=== PATIENT | female | born 1990 | race Caucasian/White ===

== ENCOUNTER → 2018-02-19 12:45 | Outpatient (CLI) | payer OTHER, SELFPAY ==
[2018-02-19 13:28] LABS: Absolute Neutrophil Count 8.5 X10^3/uL (2.0-7.7); Basophil# 0.02 X10^3/uL; Basophil% 0.2 % (0-1); Eosinophil# 0.07 X10^3/uL; Eosinophils% 0.7 % (0-5); Hematocrit 36.3 % (37-47); Hemoglobin 12.8 g/dl (12.0-15.0); Lymphocyte % 14.3 % (19-41); Mean Corp Hgb Conc 35.3 g/gl (32-36); Mean Corpuscular Hgb 31.6 pg (27.0-32.0); Mean Corpuscular Volume 89.6 fL (81-99); Mean Platelet Vol. 10.1 fl (6.2-12.0); Monocyte# 0.43 X10^3/uL; Monocyte% 4.1 % (0-10); Neutrophil # 8.48 X10^3/uL (2.7-7.7); Neutrophil % 80.5 % (47-70); Platelet Count 225 K/mm3 (150-450); RBC Distribution Width CV 12.2 % (11.6-14.6); RBC Distribution Width SD 39.4 fl (35.1-43.9); Red Blood Count 4.05 M/mm3 (4.2-5.4); White Blood Count 10.5 K/mm3 (4.4-11.0)
[2018-02-19 13:34] LABS: POSITIVE COUNT NO; POSITIVE DIFFERENTIAL NO
[2018-02-19 13:35] LABS: POSITIVE MORPHOLOGY NO
[2018-02-19 14:39] LABS: HIV - WCH Non-Reactive (Nonreactive)
[2018-02-19 14:53] LABS: Chlamydia Trachomatis by PCR Negative (Negative); Neisserai gonorrhoeae by PCR Negative (Negative); Probe Check PASS; Sample Adequacy Control PASS; Specimen Processing Control PASS
[2018-02-20 10:27] LABS: HEPATITIS B SURFACE AG Negative (Negative)
[2018-02-21 05:27] LABS: Rapid Plasmin Reagin (RPR) NONREACTIVE (NONREACTIVE)
== END ==
PROVIDERS: Referring Provider Obstetrics & Gynecology; Visit Provider Obstetrics & Gynecology
DX: Z34.00 Encounter for supervision of normal first pregnancy, unspecified trimester (principal)
CPT/HCPCS: 36415; 85025; 86592; 86703; 86762; 86850; 86900; 87086; 87088; 87340; 87491; 87591

== ENCOUNTER → 2018-05-08 07:51 | Outpatient (CLI) | payer OTHER, SELFPAY ==
[2018-03-20 13:43] VITALS: BMI 23.3
[2018-04-22 13:32] VITALS: BMI 23.3
--- NOTE | 2018-05-08 07:54 | US_ITS ---
STUDY: SECOND AND THIRD TRIMESTER OBSTETRICAL ULTRASOUND REASON FOR EXAM: Female, 28 years old. Routine survey. LMP: December 17, 2017. TECHNIQUE: Transabdominal TECHNICAL QUALITY: Adequate. PRIOR ULTRASOUND: None. FINDINGS: There is a single intrauterine fetus. The fetus is in a footling breech presentation. There is demonstrated cardiac activity with a heart rate of 142 bpm. There is a normal amniotic fluid volume. The largest amniotic fluid pocket measures 6.0 cm x 3.8 cm. The amniotic fluid index (DAYA) is normal. The placenta is anterior in location and is not low lying. There are Grade 0 placental changes. The cervix measures 3.7 cm in length. The bilateral adnexal regions are normal. BIOMETRY: BPD: 4.4 cm: 19 weeks, 3 days HC: 17.36 cm: 20 weeks, 0 days AC: 14.78 cm: 20 weeks, 1 days FL: 3.2 cm: 20 weeks, 0 days CI: 71% FL/BPD: 73% FL/HC: FL/AC: 22% HC/AC: 1.17 age by current US: 20 weeks, 0 days. ZEYAD by current US: September 25, 2018. Estimated weight: 325 grams, +/- 47 grams, 29 %. Age by LMP: 20 weeks, 2 days. ZEYAD by LMP: September 23, 2018. ANATOMY: Gender: Male Cranium: Normal lateral ventricles. Normal choroid plexus. Normal cerebellum. Normal cisterna magna. Normal face, nose and lips. Chest: Normal 4-chamber heart. Abdomen/Pelvis: Normal diaphragm. Normal stomach. Normal abdominal wall. Normal cord insertion. Normal 3 vessel cord. Normal kidneys. Normal bladder. Spine: Normal cervical spine. Normal thoracic spine. Normal lumbar spine. Normal sacrum. Extremities: Normal bilateral upper extremities. Normal bilateral lower extremities. US/OB Anatomy Scan IMPRESSION: Single live intrauterine gestation with a mean gestational age of 20 weeks. Electronically Signed: Phill Hagen MD at 8:25 EST Tel [phone], Service support ,
== END ==
PROVIDERS: Referring Provider Obstetrics & Gynecology; Visit Provider Obstetrics & Gynecology
DX: Z36.89 Encounter for other specified antenatal screening (principal)
CPT/HCPCS: 76805

== ENCOUNTER → 2018-07-07 14:27 | Outpatient (CLI) | payer OTHER, SELFPAY ==
[2018-07-07 14:01] VITALS: BMI 23.3
[2018-07-07 15:23] LABS: Absolute Lymphocyte Count 1.34 X10^3/ul (0.83-4.51); Absolute Neutrophil Count 14.2 X10^3/uL (2.0-7.7); Basophil# 0.03 X10^3/uL; Basophil% 0.2 % (0-1); Eosinophil# 0.12 X10^3/uL; Eosinophils% 0.7 % (0-5); Hematocrit 34.7 % (37-47); Hemoglobin 11.5 g/dl (12.0-15.0); Lymphocyte # 1.34 X10^3/ul (4.0); Mean Corp Hgb Conc 33.1 g/gl (32-36); Mean Corpuscular Hgb 31.1 pg (27.0-32.0); Mean Corpuscular Volume 93.8 fL (81-99); Mean Platelet Vol. 9.7 fl (6.2-12.0); Monocyte# 0.93 X10^3/uL; Monocyte% 5.6 % (0-10); Neutrophil # 14.19 X10^3/uL (2.7-7.7); Platelet Count 185 K/mm3 (150-450); RBC Distribution Width CV 13.3 % (11.6-14.6); RBC Distribution Width SD 45.7 fl (35.1-43.9); White Blood Count 16.7 K/mm3 (4.4-11.0)
[2018-07-07 15:25] LABS: POSITIVE COUNT NO; POSITIVE DIFFERENTIAL NO; POSITIVE MORPHOLOGY NO
[2018-07-07 15:32] LABS: Glucose Challenge Gest 1H 50g 113 mg/dL (70-140)
== END ==
PROVIDERS: Referring Provider Obstetrics & Gynecology; Visit Provider Obstetrics & Gynecology
DX: Z34.90 Encounter for supervision of normal pregnancy, unspecified, unspecified trimester (principal)
CPT/HCPCS: 36415; 82950; 85025; 86850; 86900

== ENCOUNTER → 2018-09-03 | Outpatient (CLI) | payer OTHER, SELFPAY ==
[2018-09-03 09:45] VITALS: BMI 28.5
== END | disposition home or self-care (01) ==
LOC: LABSPEC 13:29
PROVIDERS: Referring Provider Nurse Practitioner Women's Health; Visit Provider Nurse Practitioner Women's Health
DX: Z34.00 Encounter for supervision of normal first pregnancy, unspecified trimester (principal)
CPT/HCPCS: 87081

== ENCOUNTER 2018-09-28 01:05 | Inpatient (IN) | payer OTHER, SELFPAY ==
[2018-09-24 09:10] VITALS: BMI 31.3
[2018-09-28 02:07] VITALS: BMI 31.8
[2018-09-28] MEDS: Lactated Ringers 1,000 ML 50 ML IV ×3 (02:22→12:28)
[2018-09-28] MEDS: Oxytocin 30 units/NS 500 ml 30 UNITS/500 ML IV.SOLN IV (02:26)
[2018-09-28 02:29] LABS: Absolute Lymphocyte Count 1.57 X10^3/ul (0.83-4.51); Absolute Neutrophil Count 10.1 X10^3/uL (2.0-7.7); Basophil# 0.01 X10^3/uL; Basophil% 0.1 % (0-1); Eosinophil# 0.06 X10^3/uL; Eosinophils% 0.5 % (0-5); Hemoglobin 12.5 g/dl (12.0-15.0); Lymphocyte # 1.57 X10^3/ul (4.0); Lymphocyte % 12.5 % (19-41); Mean Corp Hgb Conc 34.7 g/gl (32-36); Mean Corpuscular Hgb 31.2 pg (27.0-32.0); Mean Corpuscular Volume 89.8 fL (81-99); Mean Platelet Vol. 10.4 fl (6.2-12.0); Monocyte# 0.73 X10^3/uL; Monocyte% 5.8 % (0-10); Neutrophil % 80.7 % (47-70); Platelet Count 191 K/mm3 (150-450); RBC Distribution Width CV 13.5 % (11.6-14.6); RBC Distribution Width SD 43.5 fl (35.1-43.9); Red Blood Count 4.01 M/mm3 (4.2-5.4); White Blood Count 12.5 K/mm3 (4.4-11.0)
[2018-09-28 02:31] LABS: POSITIVE COUNT NO; POSITIVE DIFFERENTIAL NO; POSITIVE MORPHOLOGY NO
[2018-09-28] MEDS: Nalbuphine 10 MG/ML Ampul IV (03:45)
[2018-09-28] MEDS: 0.9% Saline Lock 10 ML Syringe IV ×2 (03:53→21:17)
[2018-09-28] MEDS: fentaNYL-bupivacaine (epidural) 100 ML BAG EPIDURAL ×2 (06:17→12:27)
--- NOTE | 2018-09-28 07:43 | PCM.HP.OB ---
History Date of Admission: 09/28/18 Final ZEYAD: 09/23/18 Final ZEYAD Source: US <20 weeks Gestational age: 40 Weeks and 5 Days History of this : This is a 28 year-old, G 1, P 0, at 40 5/7 weeks gestational age. Medical History: Medical History (Last Reviewed 09/24/18 @ 09:13 by Jannie Dias) Left breast lump N63.20 Varicose veins of both lower extremities I83.93 RIGHT LEG Surgical History: Surgical History (Last Reviewed 09/24/18 @ 09:13 by Jannie Dias) H/O lumpectomy Z98.890 H/O vein stripping Z98.890 Allergies No Known Allergies Allergy (Verified 09/28/18 02:16) Home Medications: Home Medications vitamin#30 30 mg iron-10 mg iron-folic acid 1 mg-omg3 capsule 1 cap PO DAILY cap 03/20/18 Docusate Sodium [Colace] 250 mg PO DAILY PRN PRN 09/28/18 Ferrous Sulfate, Dried [Iron] 27 mg PO DAILY 09/28/18 Smoking Status: Never smoker Alcohol: None Number of Fetus(es): 1 Heart Tracin-130s avg variability. Accels Category I tracing TOCO Analysis: UCs q 2-3 mins History Past Pregnancies: Past Pregnancies Delivery Date Name GA/Weeks Outcome Route Weight Gender Labor Length Anesthesia Delivery Location Provider FOB Labs: A negative Rubella Immune GBS negative RPR negative Hepatitis B and Hepatitis C neg HIV neg GC, chlamydia NEG Hgb 12.5 g/dl. Hct 36% Plts 191,000 Review of Systems Gynecological: Reports: - - SROM at 2330 last night ? color. Was feeling painful UCs with pitocin, comfortable now after epidural. Physical Exam General: Alert, Oriented x3, Cooperative, No apparent distress HEENT: Atraumatic Abdomen: Soft, Non Tender, Gravid Extremities:: No clubbing, No cyanosis Neurological: Cranial nerves II-XII grossly intact DIRECTOR OF HOUSING: Normal external genitalia Estimated gestational size: Appropriate for gestational size Presentation: Cephalic Cervix Dilation (cm): 4 - 1.5 cm at admission Station: -2 Effacement (%): 100 Assessment/Plan All Active Problems (Last Reviewed 09/24/18 @ 09:13 by Jannie Dias) (Acute) Rh negative status during (Acute) Supervision of normal first (Acute) This is a 28 year-old, G1, P 0, at 40 5/7 weeks gestational age. SROM Admitted for labor Pitocin induction started Epidural placed per pt request, and now comfortable w/ epidural Category I , reassuring FHT with UCs q 2-3 mins and further change of cervix. continue labor. Anticipate
[2018-09-28] MEDS: Ondansetron 4 MG/2 ML Vial IV (08:39)
--- NOTE | 2018-09-28 09:58 | PCM.PN.BLA ---
Progress Note LABOR PROGRESS NOTE 40 5/7 wk SROM last night at 2330 AVSS Pitocin induction, pitocin at 4 mIU/min EFM 120-130s avg variability. Accels UCs q 2-3 mins CX 8/100/-1 at approx 0930 A/P: 40 5/7 wk SROM. induction, Pitocin. Adequate progress. continue labor. Anticipate
--- NOTE | 2018-09-28 13:25 | PCM.PN.BLA ---
Progress Note LABOR PROGRESS NOTE Category I tracing 120-130s avg variability. Accels. Some variables UCs q 2-3 mins Pitocin off now. Complete since approx 11:30 and pushing. Tried hands and knees. Trying tug of war with pushing. A/P: complete, pushing. Continue pushing. watch descent
--- NOTE | 2018-09-28 15:28 | PCM.PN.BLA ---
Progress Note LABOR PROGRESS NOTE Complete and still pushing, Some descent noted. + caput 150s with variables to 90s. UCs q 2-3 mins A/P : 40 5/7 wk labor. C and P. Anticipate . Continue pushing as some descent noted.
[2018-09-28] MEDS: CHLORHEXIDINE GLUC 2% CLOTH 1 EACH TOWELETTE TOPICAL (16:00)
[2018-09-28] MEDS: Oxytocin 30 units/NS 500 ml 30 UNITS/500 ML IV.SOLN 334 UNITS IV (16:22)
--- NOTE | 2018-09-28 16:41 | DCINST_ITS ---
Discharge Diet: No Restrictions Discharge Activity: May Shower, May Take a Tub Bath May resume sexual activity in: 4-6 weeks Additional Activity Instructions:: Nothing in the vagina for 4-6 weeks. You may return to work/school in 6 weeks. Additional Instructions: If you experience any of the following, contact your healthcare provider. * Bleeding that soaks a pad every hour for 2 hours * Fever 100.4 or higher * Unrelieved abdominal pain * Problems urinating (including inability to urinate or burning while urinating). * Visual changes * Severe headache * Flu-like symptoms * Pain or redness in one of both of your breasts * Pain, warmth, tenderness or swelling in your legs, especially the calf area * Frequent nausea and vomiting * Symptoms of depression or anxiety If you experience any of the following, call 911 or go to the nearest Emergency Room. * Chest pain * Problems breathing * Seizure activity * Partial or complete paralysis of a body part, slurred speech, weakness or drooping of the face, or a sudden inability to walk or hold your balance Allergies/Adverse Reactions: Allergies No Known Allergies Allergy (Verified 09/28/18 02:16) Medications to take at Discharge vitamin#30 30 mg iron-10 mg iron-folic acid 1 mg-omg3 capsule 1 cap PO DAILY cap 03/20/18 Docusate Sodium [Colace] 250 mg PO DAILY PRN PRN 09/28/18 Ferrous Sulfate, Dried [Iron] 27 mg PO DAILY 09/28/18 Please Follow Up With: Cami Modi MD When: Call to make an appointment with your doctor in 6 weeks. If you had elevated Blood Pressure or 4th degree laceration you will need to be seen in 2 weeks. Primary Care Physician: Care Physician,No Primary [Primary Care Provider] - Test Results: Test results from this visit will be discussed in further detail at your follow- up appointment, if applicable. Proposed Discharge Date: 09/30/18
--- NOTE | 2018-09-28 16:41 | PCM.OPRPT ---
Vaginal Delivery Maternal Presentation: Active Labor 40 5/7 wk SROM Medical Reason for Induction: Premature Rupture of Membranes Amniotic Membrane Rupture Type: Spontaneous at home Rupture of Membrane time: 2330 09/27/18 Amniotic Fluid Description: Clear Final ZEYAD: 09/23/18 Final ZEYAD Source: US <20 weeks Gestational age: 40 Weeks and 6 Days doctor who attended delivery (if requested by OB): Marilyn Valencia MD Date of Procedure: 09/28/18 Pre-Operative Diagnosis: 40 5/7 wk SROM unfavorable cervix Post-Operative Diagnosis: 40 5/7 wk induction, vacuum assisted vaginal delivery Surgery/ Procedure Performed: Vacuum Assisted Vaginal Delivery - three pulls with Kiwi vacuum extractor into green zone. Two pop offs, third pull resulted in delivery Anesthesiologist: Jackie Kinsey MD Type of Anesthesia: Epidural Description of Procedure: Complete and pushing for more than 4 hrs. Back to C/S room for double set up. Vacuum assisted vaginal delivery due to maternal exhaustion. Welch catheter in place. Epidural in place. Fully dilated and caput at +1 OA. Two pop offs with pressure in green zone on Kiwi, then third application resulted in delivery of a duong male over intact perineum to 3rd degree perineal laceration. Head delivered JEFF. No nuchal cord. Shoulders delivered easily. Infant to maternal abdomen. Dr Thompson present for delivery due to double set up. apgars 7/9. Delayed cord clamping, then cord clamped times two and cut. Routine cord blood for typing and cord gases collected. PP exam: 1st deg L vaginal sidewall laceration, hemostatic and not repaired. 3rd deg vaginal, perineal laceration repaired under epidural to hemostatic and intact with interrupted fig of 8 stitches of 2-0 chromic and with 3-0 Vicryl. Excellent hemostasis noted Placenta delivered by spont expulsion, expression 3V cord, normal appearing and intact with trailing membranes. EBL 350 cc Pt and tolerated delivery well. To recovery, stable condition. Ray Celine and needle counts correct times two. Presentation: Vertex, JEFF Placental Delivery Description: Spontaneous, Expressed Placenta Disposition: [facility] Cord Vessel Description: 3 Vessels Cord Gases drawn per routine: ABG, VBG Cord Entanglement: None Drain: Welch to straight drain Estimated Blood Loss: 350 Infant A gender: Male (1 minute): 7 (5 minute): 9 Episiotomy Description: None Laceration: Midline, Vaginal Extension/lac, 3rd degree - 1st deg L vaginal sidewall laceration also noted (not repaired as hemostatic) Medications given after delivery: IV Pitocin Complications: None
[2018-09-28] MEDS: Oxytocin 30 units/NS 500 ml 30 UNITS/500 ML IV.SOLN 167 UNITS IV ×2 (16:55→18:30)
[2018-09-28] MEDS: Naproxen 250 MG Tablet 500 MG PO (18:30)
[2018-09-28 19:41] VITALS: BP 110/65; PULSE 83; RESP 18; TEMP 37
[2018-09-28] MEDS: Acetaminophen 500 MG Tablet 1000 MG PO (23:43)
[2018-09-28 23:45] VITALS: BP 109/62; PULSE 86; RESP 18; TEMP 36.2
[2018-09-29] MEDS: Naproxen 250 MG Tablet 500 MG PO ×3 (03:38→22:58)
[2018-09-29 03:45] VITALS: BP 123/71; PULSE 74; RESP 18; TEMP 36.1; O2SAT 100
[2018-09-29 07:16] LABS: Hematocrit 32.9 % (37-47); Hemoglobin 11.3 g/dl (12.0-15.0); Mean Corp Hgb Conc 34.3 g/gl (32-36); Mean Corpuscular Hgb 31.1 pg (27.0-32.0); Mean Corpuscular Volume 90.6 fL (81-99); Mean Platelet Vol. 10.5 fl (6.2-12.0); Platelet Count 167 K/mm3 (150-450); RBC Distribution Width CV 14.1 % (11.6-14.6); Red Blood Count 3.63 M/mm3 (4.2-5.4); White Blood Count 19.6 K/mm3 (4.4-11.0)
[2018-09-29 07:17] LABS: Scan Indicated on CBC? Y/N NO
--- NOTE | 2018-09-29 07:51 | PCM.PN.OB ---
Subjective: doing well no complaints pain controlled no CP SOB N V ambulating well tolerating po lochia moderate, going well - Physical Exam General: Alert, Oriented x3 Vital Signs Temp Pulse Resp BP Pulse Ox 96.9 F L 74 18 123/71 H 100 09/29/18 03:45 09/29/18 03:45 09/29/18 03:45 09/29/18 03:45 09/29/18 03:45 Oxygen Delivery Method Room Air Weight: 203 lb 3.2 oz Body Mass Index (BMI) 31.8 Intake and Output for Last 24 Hours 09/27/18 09/28/18 09/29/18 23:59 23:59 23:59 Intake Total 3281 / 3281 Output Total 800 / 800 700 / 700 Balance 2481 / 2481 -700 / -700 Laboratory Tests Past 24 Hrs 09/28/18 09/29/18 19:55 07:05 WBC 19.6 H RBC 3.63 L Hgb 11.3 L Hct 32.9 L MCV 90.6 MCH 31.1 MCHC 34.3 RDW 14.1 RDW Differential 45.0 H Plt Count 167 MPV 10.5 Screen NEGATIVE Baby's Blood Type AB POSITIVE Baby's LEON NEGATIVE Medical Necessity - Tobacco Use Smoking Status: Never smoker Assessment/Plan All Active Problems (Last Reviewed 09/24/18 @ 09:13 by Jannie Dias) (Acute) Rh negative status during (Acute) Supervision of normal first (Acute) s/p PPD # 1 1. routine post delivery care 2. breast feeding- support given 3. rh negative- rhogam PRN 4. rubella immune
[2018-09-29 08:15] VITALS: BP 114/76; PULSE 100; RESP 16; TEMP 35.8
[2018-09-29 12:00] VITALS: BP 128/87; PULSE 86; RESP 16; TEMP 36.7
[2018-09-29] MEDS: Prenatal Vits Tablet 1 TABLET PO (12:30)
[2018-09-29] MEDS: Senna/Docusate Sodium 1 Tablet PO (12:36)
[2018-09-29 15:30] VITALS: BP 121/77; PULSE 75; RESP 18; TEMP 36.4
[2018-09-29 20:00] VITALS: BP 134/80; PULSE 72; RESP 18; TEMP 36.6
[2018-09-29] MEDS: Acetaminophen 500 MG Tablet 1000 MG PO (20:05)
[2018-09-30 03:20] VITALS: BP 113/72; PULSE 68; RESP 16; TEMP 36.7
[2018-09-30] MEDS: Acetaminophen 500 MG Tablet 1000 MG PO (05:53)
[2018-09-30] MEDS: Naproxen 250 MG Tablet 500 MG PO (07:29)
[2018-09-30 07:34] VITALS: BP 121/89; PULSE 75; RESP 16; TEMP 36.2
--- NOTE | 2018-09-30 08:09 | PCM.PN.OB ---
Subjective: doing well no complaints pain controlled no CP SOB N V ambulating well tolerating po lochia moderate, going well - Physical Exam General: Alert, Oriented x3 Abdomen: Soft, Non Tender, Non-Distended, - - FF below U Vital Signs Temp Pulse Resp BP Pulse Ox 97.1 F L 75 16 121/89 H 100 09/30/18 07:34 09/30/18 07:34 09/30/18 07:34 09/30/18 07:34 09/29/18 03:45 Oxygen Delivery Method Room Air Weight: 203 lb 3.2 oz Body Mass Index (BMI) 31.8 Intake and Output for Last 24 Hours 09/28/18 09/29/18 09/30/18 23:59 23:59 23:59 Intake Total 3281 / 3281 Output Total 800 / 800 700 / 700 Balance 2481 / 2481 -700 / -700 Medical Necessity - Tobacco Use Smoking Status: Never smoker Assessment/Plan All Active Problems (Last Reviewed 09/24/18 @ 09:13 by Jannie Dias) (Acute) Rh negative status during (Acute) Supervision of normal first (Acute) s/p PPD # 2 1. routine post delivery care 2. breast feeding- support given 3. rh positive 4. rubella immune 5. home today
[2018-09-30] MEDS: Prenatal Vits Tablet 1 TABLET PO (13:53)
[2018-09-30 13:54] VITALS: BP 126/87; PULSE 76; RESP 16; TEMP 36.6
--- NOTE | 2018-09-30 17:13 | NURSING ---
Spectra S2pump given per her insurance coverage and instructions prior to discharge. Mom doing a great job with latching and feeding her baby.
--- NOTE | 2018-09-30 17:14 | NURSING ---
0920 Pump instructions given prior to discharge. Spectra S2 from [employer] insurance approved. Tamara MEADOWS
--- NOTE | 2018-10-05 13:40 | NURSING ---
On follow up phone call mother states doing well . Her milk is in and baby eating well with lots of voids and stools. She states she had an awesome experience and Amie Moura was a rockstar.
== END 2018-09-30 14:15 | disposition home or self-care (01) | DRG 768 ==
PROVIDERS: Admitting Provider Obstetrics & Gynecology; Referring Provider Obstetrics & Gynecology; Visit Provider Obstetrics & Gynecology
DX: O76 Abnormality in fetal heart rate and rhythm complicating labor and delivery (principal); Z37.0 Single live birth; O70.20 Third degree perineal laceration during delivery, unspecified; O36.0130 Maternal care for anti-D [Rh] antibodies, third trimester, not applicable or unspecified; O42.02 Full-term premature rupture of membranes, onset of labor within 24 hours of rupture; Z3A.40 40 weeks gestation of pregnancy; O75.81 Maternal exhaustion complicating labor and delivery; O34.43 Maternal care for other abnormalities of cervix, third trimester
CPT/HCPCS: 59025; 59050; 85025; 85027; 85461; 86850; 86900; 90384; 99218; J7120; A4216; G0378; J2405; J2790

== ENCOUNTER → 2018-11-21 14:00 | Outpatient (CLI) | payer OTHER, SELFPAY ==
[2018-11-21 13:47] VITALS: BMI 31.8
[2018-11-27 09:28] LABS: HPV Reflexed? NOT INDICATED
== END ==
PROVIDERS: Emergency Medicine; Visit Provider Obstetrics & Gynecology
DX: Z12.4 Encounter for screening for malignant neoplasm of cervix (principal)
CPT/HCPCS: 87624; 88175; G0145

== ENCOUNTER → 2020-01-19 11:03 | Outpatient (CLI) | payer OTHER, SELFPAY ==
[2020-01-19 10:36] VITALS: BMI 31.8
[2020-01-19 12:43] LABS: Vitamin D,25 Hydroxy 30.8 ng/mL
[2020-01-19 12:55] LABS: Thyroid Stim Hormone (TSH) 0.73 uIU/mL (0.358-3.74)
== END ==
PROVIDERS: PCP Internal Medicine; Visit Provider Nurse Practitioner Family
DX: Z13.29 Encounter for screening for other suspected endocrine disorder (principal); E55.9 Vitamin D deficiency, unspecified
CPT/HCPCS: 36415; 82306; 84443

== ENCOUNTER → 2021-02-23 | Outpatient (CLI) | payer OTHER, SELFPAY ==
[2021-02-28 08:31] LABS: HPV APTIMA, High Risk Negative (Negative)
== END | disposition home or self-care (01) ==
LOC: LABSPEC 11:53
PROVIDERS: PCP Internal Medicine; Referring Provider Nurse Practitioner Women's Health; Visit Provider Nurse Practitioner Women's Health
DX: Z12.4 Encounter for screening for malignant neoplasm of cervix (principal)
CPT/HCPCS: 87624; 88175; G0145

== ENCOUNTER 2022-01-02 11:08 | Outpatient (CLI) | payer OTHER, SELFPAY ==
[2022-01-02 12:02] LABS: Thyroid Stim Hormone (TSH) 0.88 uIU/mL (0.358-3.74)
== END 2022-01-02 23:59 | disposition home or self-care (01) ==
LOC: LABSPEC 11:10
PROVIDERS: PCP Nurse Practitioner Family; Referring Provider Nurse Practitioner Family; Visit Provider Nurse Practitioner Family
DX: Z00.00 Encounter for general adult medical examination without abnormal findings (principal)
CPT/HCPCS: 84443

== ENCOUNTER → 2023-02-22 | Outpatient (CLI) | payer OTHER, SELFPAY ==
--- NOTE | 2023-02-22 09:55 | VDLE_ITS ---
Reason For Study: Bilateral leg pain RIGHT LEFT CFV is compressible, spontaneous, phasic, CFV is compressible, spontaneous, phasic, competent and demonstrates normal competent, and demonstrates normal augmentation. augmentation. FV is compressible, spontaneous, phasic, FV is compressible, spontaneous, phasic, competent and demonstrates normal competent and demonstrates normal augmentation. augmentation. POP V is compressible, spontaneous, phasic, POP V is compressible, spontaneous, phasic, competent and demonstrates normal competent and demonstrates normal augmentation. augmentation. T/P Trunk is compressible. T/P Trunk is compressible. PTV is compressible. PTV is compressible. RT PerV is compressible. LT PerV is compressible. SFJ is competent and measures 0.77 x 0.80 cm. SFJ is competent and measures 0.68 x 0.81 cm. GSV proximal thigh measures 0.22 x 0.25 cm. GSV proximal thigh measures 0.27 x 0.27 cm. GSV at knee measures 0.17 x 0.19 cm. GSV above knee is INCOMPETENT for greater GSV is competent throughout. than 0.5 seconds. SSV at junction is competent and measures GSV at knee measures 0.25 x 0.24 cm. 0.27 x 0.25 cm. GSV below knee is competent. Procedure SSV proximal calf is competent and measures This is a venous duplex using B-mode, color 0.36 x 0.34 cm. flow and spectral Doppler. Vein of Giacomini is INCOMPETENT for greater Exam performed in department. than 0.5 seconds and measures 0.35 x 0.47 cm. Patient was scanned in reverse Trendelenburg INCOMPETENT machine packaging technician from vein of giacomini position during reflux assessment. noted. Techincally difficult due to vessel size. VL/Venous Duplex US - Wolfgang Extrem Interpretation Summary Deep veins of the bilateral lower extremities are patent and compressible segme ntally. There is no evidence of bilateral lower extremity deep vein thrombosis. The bilateral great saphenous veins appear patent and compressible segmentally. Positive for reflux in the left great saphenous vein, Vein of Giacomini, and pe rforator vein Ordering Physician: Stephanie Meraz Referring Physician: Ofelia Carver Performed By: Lina Estes RVT
== END | disposition home or self-care (01) ==
LOC: CVS 09:55
PROVIDERS: PCP Internal Medicine; Referring Provider Physician Assistant; Visit Provider Physician Assistant
DX: I83.813 Varicose veins of bilateral lower extremities with pain (principal)
CPT/HCPCS: 93970

== ENCOUNTER → 2023-10-25 | Outpatient (CLI) | payer OTHER, SELFPAY ==
[2023-10-25 10:30] LABS: Absolute Lymphocyte Count 1.71 X10^3/uL (0.83-4.51); Absolute Neutrophil Count 3.8 X10^3/uL (2.0-7.7); Basophil# 0.04 X10^3/uL; Basophil% 0.7 % (0-1); Eosinophil# 0.11 X10^3/uL; Eosinophils% 1.8 % (0-5); Hematocrit 39.4 % (37-47); Hemoglobin 13.2 g/dL (12.0-15.0); Lymphocyte # 1.71 X10^3/ul (0.83-4.51); Lymphocyte % 28.3 % (19-41); Mean Corp Hgb Conc 33.5 g/dL (32-36); Mean Corpuscular Hgb 30.7 pg (27.0-32.0); Mean Corpuscular Volume 91.6 fL (81-99); Mean Platelet Vol. 10.3 fl (6.2-12.0); Monocyte# 0.42 X10^3/uL; Monocyte% 6.9 % (0-10); NRBC Flagged by Analyzer 0 % (0-5); Neutrophil # 3.75 X10^3/uL (2.7-7.7); Platelet Count 225 K/mm3 (150-450); RBC Distribution Width CV 13.3 % (11.6-14.6); RBC Distribution Width SD 45.2 fl (35.1-43.9); White Blood Count 6.1 K/mm3 (4.4-11.0)
[2023-10-25 11:11] LABS: ALB/GLOB Ratio 1.1 RATIO (0.9-2.4); AST(SGOT) 18 U/L (15-37); Alanine Aminotransfer ALT/SGPT 28 U/L (13-56); Alkaline Phosphatase 46 U/L (45-117); Anion Gap 6 (5-15); BUN 18 mg/dL (7-18); BUN/Creat Ratio 19.1 RATIO (10-20); Calcium,Total 9.5 mg/dL (8.5-10.1); Chloride 106 mmol/L (98-107); Creatinine, Serum 0.94 mg/dL (0.55-1.02); EST Glomerular Filtration Rate 72 mL/min (>60); Est Glom Filt Rate - Afr Amer 87 mL/min (>60); Globulin 3.6 g/dL (2.2-4.2); Glucose 93 mg/dL (74-106); Lipase 56 U/L (13-75); Potassium 4.1 mmol/L (3.5-5.1); Protein, Total 7.6 g/dL (6.4-8.2); Sodium Level 139 mmol/L (136-145); T4 Free Direct 0.92 ng/dL (0.76-1.46); Thyroid Stim Hormone (TSH) 0.53 uIU/mL (0.358-3.74)
== END | disposition home or self-care (01) ==
LOC: LAB 10:02
PROVIDERS: PCP Internal Medicine; Referring Provider Nurse Practitioner; Visit Provider Nurse Practitioner
DX: R19.4 Change in bowel habit (principal)
CPT/HCPCS: 36415; 80053; 83690; 84439; 84443; 85025

== ENCOUNTER 2023-12-03 05:20 | Day surgery (SDC) | payer OTHER, SELFPAY ==
[2023-12-03] MEDS: Lactated Ringers 1,000 ML 15 ML IV (05:56)
[2023-12-03 06:00] VITALS: BP 111/72; PULSE 67; RESP 16; TEMP 36.7; O2SAT 100; BMI 25.2
[2023-12-03 06:05] LABS: Internal QC Validated? YES +Cl - CLEAR BKGD; Pregnancy, Urine Negative Negative
--- NOTE | 2023-12-03 06:30 | COLBX_PTH ---
PATIENT: SHONDA PUENTES LOC: EN U#:[id number] AGE/SX: 33/F ROOM: RE12/03/[address]: Dr. Kalyan Lopez DO : 1990 BED: DIS: 12/03/2023 SPEC #: [id number] RECD: 12/03/23 11:12 STATUS: YONNY SANAM #: [id number] KEVEN: 12/03/23 06:[address]: Kalyan Lopez DEPT: SURGICAL PATHOLOGY RECD BY: Marcus Albarran ENTERED: 12/03/23 13:04 SP TYPE: COLON BX OTHR DR: Sheryl Zavala, ROSS CARRIER DRIVER-C Tissues: A - Duodenum, NOS B - Gastric mucous membrane C - Esophagus, NOS D - Ileum, NOS Procedures: Surgery Specimen Level IV HEADER OPERATION: Colonoscopy with biopsy, EGD with biopsy PRE-OP DIAGNOSIS: GERD, family history of colon cancer, change in bowel habits TISSUE SUBMITTED: A- Duodenum biopsy, B- Gastric antrum biopsy, C- Distal esophagus biopsy, D- Terminal ileum biopsy MICROSCOPIC DIAGNOSIS A. Duodenum, biopsy: Fragments of duodenal mucosa, no pathologic diagnosis. B. Gastric antrum, biopsy: Mild gastritis. See microscopic description and comment. C. Distal esophagus, biopsy: Fragments of gastroesophageal mucosa with chronic inflammation. Intestinal metaplasia (goblet cell metaplasia) not identified. See comment. D. Terminal ileum, biopsy: A fragment of small intestinal mucosa, no pathologic diagnosis. SJ/mr 12/04/2023 COMMENT B. The results of immunohistochemistry for Helicobacter pylori will be reported separately ([id number]). C. Alcian blue/PAS stain with matched control is used in the evaluation of the specimen. MICROSCOPIC DESCRIPTION Slides are reviewed. B. The specimen shows fragments of gastric mucosa with chronic inflammatory cell infiltrates in the lamina propria consisting of lymphocytes and plasma cells, consistent with mild chronic gastritis. GROSS DESCRIPTION A. Received in fixative is one container labeled with the patient's name and designated Duodenum biopsy. The specimen consists of multiple irregular fragments of light youngblood soft tissue that in aggregate measure 1.2 x 0.4 x 0.1 cm. The specimen is totally submitted in one cassette. B. Received in fixative is one container labeled with the patient's name and designated Gastric antrum. The specimen consists of two irregular fragments of light youngblood soft tissue that in aggregate measure 0.6 x 0.2 x 0.1 cm. The specimen is totally submitted in one cassette. C. Received in fixative is one container labeled with the patient's name and designated Distal esophagus biopsy. The specimen consists of two irregular fragments of light youngblood soft tissue that in aggregate measure 0.8 x 0.4 x 0.1 cm. The specimen is totally submitted in one cassette. D. Received in fixative is one container labeled with the patient's name and designated Terminal ileum biopsy. The specimen consists of one irregular fragment of light youngblood soft tissue that measures 0.4 x 0.3 x 0.1 cm. The specimen is totally submitted in one cassette. KELLY/ 12/03/2023 TC:3 CPT:33824r0,58662
--- NOTE | 2023-12-03 06:30 | IMM_PTH ---
PATIENT: SHONDA PUENTES LOC: EN U#:[id number] AGE/SX: 33/F ROOM: RE12/03/[address]: Dr. Kalyan Lopez DO : 1990 BED: DIS: 12/03/2023 SPEC #: [id number] RECD: 12/03/23 12:53 STATUS: YONNY REQ #: [id number] KEVEN: 12/03/23 06:[address]: Kalyan Lopez DEPT: IMMUNOHISTOCHEMISTRY RECD BY: Daniel Trevino ENTERED: 12/03/23 12:53 SP TYPE: IMMUNO OTHR DR: Sheryl Zavala, FLUE BLOWER-C Tissues: B - Gastric mucous membrane Procedures: H Pylori (initial) PHYSICIAN & INSTITUTION [place] [id number] SPECIMEN INFORMATION: Tissue Source: B- Gastric antrum biopsy Clinical Info: GERD, family history of colon cancer, change in bowel habits Specimen Number: [id number] CPT code: 07731 METHODOLOGY: Deparaffinized sections of prefer/formalin-fixed tissue or PAP/DQ stained slides are incubated with monoclonal/polyclonal antibodies/oligonucleotide probes. Localization is made via biotin free immunoperoxidase method. Appropriate controls are performed and reacted as expected. Results on target cell population are indicated in the following table: RESULTS: ANTIBODY / CLONE RESULT Block B H Pylori (polyclonal) negative These tests were developed and their performance characteristics determined by [facility]. They may not have been cleared or approved by the U.S. Food and Drug Administration. The FDA has determined that such clearance or approval is not necessary. The above immunohistochemical/dualISH markers are ordered and reviewed by the Pathologist. INTERPRETATION: B. Gastric antrum, biopsy: Negative for Helicobacter pylori organisms. DANIELLA/ 12/04/2023
--- NOTE | 2023-12-03 06:40 | PCM.HP.BLA ---
History and Physical Date of Admission: 12/03/23 SHONDA PUENTES, is a 33 F who presents to the office today for initial consult. *BGI established 6.27.24 pt reports a strong family history of colon cancer. In the past year pt has noticed small amounts of bright red blood after a bm. Pt reports a bm at least every other day; consistency varies; tries to manage through diet. Pt notes abd pain and heartburn after eating certain foods; notes an occasional gastric burning sensation that is not effected by what she eats. Pt reports increased difficulty swallowing her nightly vitamins. ROS Const Constitutional: No fatigue, fever(s) or weight change ENT ENT: Positive for difficulty swallowing Gastro GI: Positive for abdominal pain, change in bowel habits, constipation, heartburn, difficulty swallowing and Blood in stool; No belching, bloating, change in stool character, coffee ground emesis, cramping, diarrhea, feeling full early, excessive flatus, incontinent of stools, Vomiting blood/hematemesis, loose stools, Black,tarry stools, nausea/dyspepsia, pain with swallowing, vomiting or other Musc Musculoskeletal: No joint pain Skin Skin: No yellowing of the eye or itchy eyes Psych Psychiatric: No anxiety and No depression Endo Endocrine: No fatigue or weight change Aller/Imm Allergy/Immunologic: No itchy eyes Kashif/Lymp Hematologic/Lymphatic: Positive for easy bruising; No easy bleeding Exam Const General: cooperative, healthy appearing, comfortable and no acute distress Nutritional Appearance: average body habitus Orientation: alert, awake and oriented x3 HENMT Head: normal to inspection, normocephalic and atraumatic Ears: hearing grossly normal bilaterally Nose: external nose normal Face and sinus: normal facial exam, sinuses nontender and face symmetric Mouth: oral mucosae normal, lip normal and tongue normal Teeth and gingiva: dentition normal Throat: posterior oropharynx normal, tonsils normal and uvula midline Eyes General: appearance normal, both eyes and all related structures Pupils: PERRL Neck Neck: normal visual inspection, full ROM and no lymphadenopathy Chest Chest palpation & inspection: normal inspection of the chest Resp Effort & Inspection: normal respiratory effort, able to speak in complete sentences and symmetric chest movement Auscultation: Bilateral: Clear to Auscultation Cardio Rate: regular rate Rhythm: regular rhythm Heart Sounds: S1 normal and S2 normal GI Inspection: normal to inspection Auscultation: normal bowel sounds Palpation: soft, no hepatosplenomegaly, no hernias, no masses, nontender and No ascites Musc Cervical Spine: normal cervical lordosis Thoracic/Lumbar Spine: thoracic and lumbar spine normal to inspection Skin General: no rashes or lesions noted Neuro General: patient alert, patient awake, patient oriented x3, gait normal, tone normal and moves all extremities Cranial Nerves: CN's II-XI intact bilaterally and PERRL Cognition: normal cognition Speech: speech normal Gait: normal gait Motor: muscle tone normal throughout Extrem General: normal to inspection, full ROM, capillary refill normal, no pedal edema and no calf tenderness Psych Appearance: grossly normal Mental Status: mental status grossly normal Assessment and Plan Assessment and Plan (1) GERD (gastroesophageal reflux disease): Status: Acute Qualifiers: Esophagitis presence: esophagitis presence not specified Qualified Code(s): K21.9 - Gastro-esophageal reflux disease without esophagitis Plan: The differential diagnosis for mild gastroesophageal reflux disease in the setting of esophageal dysphagia would be eosinophilic esophagitis, erosive esophagitis, esophageal dysmotility disorder, hiatal hernia. She will undergo an upper endoscopy to evaluate upper GI tract. She was explained alternatives, risk, benefits including not withstanding bleeding, infection, sepsis, perforation, need for emergent urgent . She have an ASA of 3. (2) Family history of colon cancer in mother: Status: Acute Comment: Considering genetic testing Plan: She has a strong family history of colon cancer in 2 second-degree relatives being both grandmother and grandfather and also her mother was diagnosed with colon cancer. She should undergo screening colonoscopy very strong family history of colon cancer. She also is having some rectal bleeding likely secondary to hemorrhoidal disease. She will undergo colonoscopy with possible banding procedure. She was explained alternatives, risk, benefits including not withstanding bleeding, infection, sepsis, perforation, need emergent and . She will have an ASA of 3. I have examined the patient and the H&P has been reviewed. There are no clinical changes since date of exam.
[2023-12-03 06:41] VITALS: BP 111/72; PULSE 67; RESP 16; TEMP 36.7; O2SAT 100
--- NOTE | 2023-12-03 06:41 | PRE.ANES_ITS ---
ASA Classification* ASA Classification ASA Classification: 2 Assessment & Plan Anesthesia* Anesthesia Assessment Anesthesia Assessment: Discussed sedation and/or anesthesia options, risks, benefits, and alternatives with patient/parents/legal guardian/POA. Questions invited. The patient/parents/legal guardian/POA seems to understand and agrees to proceed with anesthesia plan. Reviewed the physical assessment, medical history, allergy history and patient home medications list prior to surgery/procedure/anesthetic and documented any changes. Performed airway and anesthesia risk assessments. Anesthesia Type Anesthesia Type: MAC History Source History Obtained from:: Patient and Chart Anesthesia Focused Assessment* Temperature: 98.1 F Pulse Rate: 67 Blood Pressure: 111/72 Respiratory Rate: 16 Pulse Ox: 100 Airway Assessment Mouth opens: >3 cm Mallampati Score: II Teeth Condition: Intact Neck Range of motion (ROM): Full ROM Focused Labs Anesthesia Preop lab: CBC WBC 6.1 K/mm3 (4.4-11.0) 10/25/23 10:03 RBC 4.30 M/mm3 (4.2-5.4) 10/25/23 10:03 Hgb 13.2 g/dL (12.0-15.0) 10/25/23 10:03 Hct 39.4 % (37-47) 10/25/23 10:03 Plt Count 225 K/mm3 (150-450) 10/25/23 10:03 CHEMISTRY Potassium 4.1 mmol/L (3.5-5.1) 10/25/23 10:03 Sodium 139 mmol/L (136-145) 10/25/23 10:03 Phosphorus 2.9 mg/dL (2.5-4.9) 01/01/23 07:57 BUN 18 mg/dL (7-18) 10/25/23 10:03 Creatinine 0.94 mg/dL (0.55-1.02) 10/25/23 10:03 Glucose 93 mg/dL (74-106) 10/25/23 10:03 TSH 0.53 uIU/mL (0.358-3.74) 10/25/23 10:03 COAG Urine Test Negative Negative 12/03/23 05:30 Pre-Assessment Diagnosis/Proposed Procedure Planned Operative Procedure(s): CSCOPE & EGD Anesthesia History 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 When Was Last Pacemaker Check QUESTION #4 FULL TEXT: You/Your Family Experience fever (hyperthermia) with Anesthesia Last Oral Intake Last Oral intake: Last Oral Intake NPO since 00:00 12/03/23 06:00 Meds taken in AM with sips of water? Meds patient instructed to take am of surgery PONV PONV - sharepoint engineer: PONV - sharepoint engineer Female Yes 11/27/23 10:33 HX of Motion Sickness No 11/27/23 10:33 HX of N/V After Surgery No 11/27/23 10:33 Non-Smoker Yes 11/27/23 10:33 Duration of Surgery greater No 11/27/23 10:33 than 60 minutes Number of Risk Factors 2 11/27/23 10:33 PONV Score Moderate Risk 11/27/23 10:33 Height & Weight Height & Weight: Anesthesia: Height & Weight Height 5 ft 7 in 12/03/23 06:00 Weight: 73 kg 12/03/23 06:00 Body Mass Index (BMI) 25.2 12/03/23 06:00 Respiratory Assessment Respiratory Assessment - sharepoint engineer: Respiratory Tract Infection Hx - sharepoint engineer Hx Respiratory Tract Infection No 11/27/23 10:33 STOP Sleep Apnea STOP Sleep Apnea - sharepoint engineer: STOP Sleep Apnea - sharepoint engineer Hx Hypertension No 11/27/23 10:33 Hx Sleep Apnea No 11/27/23 10:33 CPAP BIPAP Do you snore loudly (louder No 11/27/23 10:33 than talking or can be heard Do you often feel tired/ No 11/27/23 10:33 fatigued/ sleepy during daytime? Has anyone observed you stop No 11/27/23 10:33 breathing during sleep? STOP Results Negative 11/27/23 10:33 QUESTION #5 FULL TEXT : Do you snore loudly (louder than talking or can be heard through closed doors)? 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 Specify any problems Hx of Preganancy in last 3 N/A 11/27/23 10:33 Months Nurse Filling Out Transfusion NBUCHER 11/27/23 10:33 & Questions: Date: 11/27/23 11/27/23 10:33 Time: 10:33 11/27/23 10:33 Patient unable to answer at this time (ie. confused, unrespo /Reproduction History /Reproductive History - sharepoint engineer: /Reproductive Hx- sharepoint engineer Hx Now No 11/27/23 10:33 Gestational Age (in weeks): EDC: Hx Hx Para Hx Section SAB No 11/27/23 10:33 Active Medications Active Medications: Current Medications Generic Name Dose Route Start Last Admin Trade Name Freq PRN Reason Stop Dose Admin Lactated Ringer's 1,000 mls @ 15 mls/hr 12/03/23 05:45 12/03/23 05:56 IV 15 mls/hr .Q48H YOLANDA Administration PFSH Medical History Wears glasses Wears contact lenses History of edema Former smoker PONV (postoperative nausea and vomiting) Anxiety Varicose veins of both lower extremities Left breast lump Home Medications ?Medication ?Instructions ?Recorded ?Last Taken ?Type NK 02/26/22 Unknown History Allergy/AdvReac Type Severity Reaction Status Date / Time No Known Allergies Allergy Verified 12/03/23 05:56 Family History Father Hypertension Grandmother Colon cancer, Onset Age: 70 Mother Colon cancer, Onset Age: 62 Grandfather Colon cancer Cancer Surgical History [place] teeth extracted H/O vein stripping H/O lumpectomy Social History adopted: No household members: spouse and children housing: house number of children: 0 current occupational status: employed current occupation: [employer] pets and animals: Yes Smoking Status: Former smoker Electronic Cigarette Use: not used second hand exposure: No alcohol intake: current alcohol intake frequency: a few times a week substance use type: does not use caffeine: Yes what type of physical activity do you participate in: walking seatbelt use: always do you feel safe at home: Yes additional social history: - Jyle ([employer]) Review of Systems (Anesthesia) ROS Narrative System reviewed and no additional complaints, except as documented.
[2023-12-03 07:23] VITALS: BP 111/72; BP 88/49; PULSE 72; RESP 16; TEMP 36.1; O2SAT 98
--- NOTE | 2023-12-03 07:23 | OP.EGD_ITS ---
Patient Name: Diana Hand Procedure Date: 12/03/2023 6:17 AM Date of : 1990 Age: 33 Procedure: Upper GI endoscopy Indications: Epigastric abdominal pain, Functional Dyspepsia, Suspected esophageal reflux Providers: Kalyan Lopez DO Referring MD: Adams Meeks Medicines: Monitored Anesthesia Care Patient Profile: This is a 33 year old female. Refer to note in patient chart for documentation of history and physical. Patient has symptoms of chronic epigastric abdominal pain and acute heartburn. Complications: No immediate complications. Procedure: Pre-Anesthesia Assessment: - Prior to the procedure, a History and Physical was performed, and patient medications and allergies were reviewed. The risks and benefits of the procedure and the sedation options and risks were discussed with the patient. All questions were answered and informed consent was obtained. Patient identification and proposed procedure were verified by the physician. Mental Status Examination: alert and oriented. Airway Examination: normal oropharyngeal airway and neck mobility. Respiratory Examination: clear to auscultation. CV Examination: normal. Prophylactic Antibiotics: The patient does not require prophylactic antibiotics. Prior Anticoagulants: The patient has taken no anticoagulant or antiplatelet agents. After reviewing the risks and benefits, the patient was deemed in satisfactory condition to undergo the procedure. The anesthesia plan was to use monitored anesthesia care (MAC). Immediately prior to administration of medications, the patient was re-assessed for adequacy to receive sedatives. The heart rate, respiratory rate, oxygen saturations, blood pressure, adequacy of pulmonary ventilation, and response to care were monitored throughout the procedure. The physical status of the patient was re-assessed after the procedure. After obtaining informed consent, the endoscope was passed under direct vision. Throughout the procedure, the patient's blood pressure, pulse, and oxygen saturations were monitored continuously. The Colonoscope was introduced through the mouth, and advanced to the second part of duodenum. The upper GI endoscopy was accomplished without difficulty. The patient tolerated the procedure well. Scope In: 6:51:19 AM Scope Out: 6:56:45 AM Total Procedure Duration Time 0 hours 5 minutes 26 seconds Findings: The Z-line was irregular and was found 39 cm from the incisors. Biopsies were taken with a cold forceps for histology. Verification of patient identification for the specimen was done. Estimated blood loss was minimal. Patchy mildly erythematous mucosa without bleeding was found in the gastric antrum. Biopsies were taken with a cold forceps for histology. Verification of patient identification for the specimen was done. Estimated blood loss was minimal. Biopsies were taken with a cold forceps for Helicobacter pylori testing. Verification of patient identification for the specimen was done. Estimated blood loss was minimal. Patchy mildly erythematous mucosa without active bleeding and with no stigmata of bleeding was found in the first portion of the duodenum and in the second portion of the duodenum. Biopsies were taken with a cold forceps for histology. Verification of patient identification for the specimen was done. Estimated blood loss was minimal. Impression: - Z-line irregular, 39 cm from the incisors. Biopsied. - Erythematous mucosa in the antrum. Biopsied. - Erythematous duodenopathy. Biopsied. Recommendation: - Discharge patient to home. - Resume previous diet. - Continue present medications. - Await pathology results. Procedure Code(s): --- Professional --- 98848, Esophagogastroduodenoscopy, flexible, transoral; with biopsy, single or multiple CPT copyright 2021 [employer]. All rights reserved. The codes documented in this report are preliminary and upon certified professional coder review may be revised to meet current compliance requirements. Kalyan Lopez DO 12/03/2023 7:22:31 AM This report has been signed electronically. Number of Addenda: 0 Note Initiated On: 12/03/2023 6:17 AM
--- NOTE | 2023-12-03 07:23 | OP.CCLET_ITS ---
12/03/2023 Adams Meeks Re : Upper GI endoscopy procedure for Diana Hand Dear Lucas This procedure was performed on Sunday, December 03, 2023. My impressions and recommendations are as follows: Impressions : - Z-line irregular, 39 cm from the incisors. Biopsied. - Erythematous mucosa in the antrum. Biopsied. - Erythematous duodenopathy. Biopsied. Recommendations : - Discharge patient to home. - Resume previous diet. - Continue present medications. - Await pathology results. My findings are described in the full procedure note, which is enclosed. If I can be of further assistance, please feel free to contact me at . Sincerely, Kalyan Lopez, 12/03/2023 7:22:31 AM This report has been signed electronically.
--- NOTE | 2023-12-03 07:26 | OP.COLON_ITS ---
Patient Name: Diana Hand Procedure Date: 12/03/2023 6:57 AM Date of : 1990 Age: 33 Procedure: Colonoscopy Indications: Screening for colon cancer: Family history of colorectal cancer in multiple 2nd degree relatives, Screening patient at increased risk: Family history of colorectal cancer in multiple 1st-degree relatives Providers: Kalyan Lopez DO Referring MD: Adams Meeks Medicines: Monitored Anesthesia Care Patient Profile: This is a 33 year old female. Refer to note in patient chart for documentation of history and physical. Patient has symptoms of chronic epigastric abdominal pain and acute heartburn. Last Colonoscopy: none. The patient's first colonoscopy is today. Complications: No immediate complications. Procedure: Pre-Anesthesia Assessment: - Prior to the procedure, a History and Physical was performed, and patient medications and allergies were reviewed. The risks and benefits of the procedure and the sedation options and risks were discussed with the patient. All questions were answered and informed consent was obtained. Patient identification and proposed procedure were verified by the physician. Mental Status Examination: alert and oriented. Airway Examination: normal oropharyngeal airway and neck mobility. Respiratory Examination: clear to auscultation. CV Examination: normal. Prophylactic Antibiotics: The patient does not require prophylactic antibiotics. Prior Anticoagulants: The patient has taken no anticoagulant or antiplatelet agents. After reviewing the risks and benefits, the patient was deemed in satisfactory condition to undergo the procedure. The anesthesia plan was to use monitored anesthesia care (MAC). Immediately prior to administration of medications, the patient was re-assessed for adequacy to receive sedatives. The heart rate, respiratory rate, oxygen saturations, blood pressure, adequacy of pulmonary ventilation, and response to care were monitored throughout the procedure. The physical status of the patient was re-assessed after the procedure. After I obtained informed consent, the scope was passed under direct vision. Throughout the procedure, the patient's blood pressure, pulse, and oxygen saturations were monitored continuously. The Colonoscope was introduced through the anus and advanced to the terminal ileum. The colonoscopy was performed without difficulty. The patient tolerated the procedure well. The quality of the bowel preparation was adequate. The terminal ileum, ileocecal valve, appendiceal orifice, and rectum were photographed. Scope In: 6:58:51 AM Scope Withdrawal Time 0 hours 10 minutes 39 seconds Scope Out: 7:15:41 AM Total Procedure Duration Time 0 hours 16 minutes 50 seconds Findings: The perianal and digital rectal examinations were normal. Non-bleeding internal hemorrhoids were found during retroflexion. The hemorrhoids were small and Grade I (internal hemorrhoids that do not prolapse). The colon (entire examined portion) appeared normal. A localized area of the terminal ileum was congested. Biopsies were taken with a cold forceps for histology. Verification of patient identification for the specimen was done. Estimated blood loss was minimal. Impression: - Non-bleeding internal hemorrhoids. - The entire examined colon is normal. - Congested mucosa in the terminal ileum. Biopsied. Recommendation: - Discharge patient to home. - Resume previous diet. - Continue present medications. - Await pathology results. - Repeat colonoscopy in 5 years for surveillance. Procedure Code(s): --- Professional --- 78165, Colonoscopy, flexible; with biopsy, single or multiple CPT copyright 2021 [employer]. All rights reserved. The codes documented in this report are preliminary and upon metal reclamation kettle tender review may be revised to meet current compliance requirements. Kalyan Lopez DO 12/03/2023 7:26:19 AM This report has been signed electronically. Number of Addenda: 0 Note Initiated On: 12/03/2023 6:57 AM
--- NOTE | 2023-12-03 07:27 | OP.CCLET_ITS ---
12/03/2023 Adams Meeks Re : Colonoscopy procedure for Diana Hand Dear Lucas This procedure was performed on Sunday, December 03, 2023. My impressions and recommendations are as follows: Impressions : - Non-bleeding internal hemorrhoids. - The entire examined colon is normal. - Congested mucosa in the terminal ileum. Biopsied. Recommendations : - Discharge patient to home. - Resume previous diet. - Continue present medications. - Await pathology results. - Repeat colonoscopy in 5 years for surveillance. My findings are described in the full procedure note, which is enclosed. If I can be of further assistance, please feel free to contact me at . Sincerely, Kalyan Lopez, 12/03/2023 7:26:19 AM This report has been signed electronically.
[2023-12-03 07:30] VITALS: BP 100/61; BP 105/59; BP 111/72; PULSE 62; PULSE 63; RESP 16; TEMP 36.2; O2SAT 100; O2SAT 98
[2023-12-03 07:44] VITALS: BP 111/72; BP 88/49; PULSE 79; RESP 18; TEMP 36.1; O2SAT 98
--- NOTE | 2023-12-03 07:44 | PCM.POST.ANE ---
Anesthesia: Postop Eval I Current Vital Signs Temperature: 97 F Pulse Rate: 79 Blood Pressure: 88/49 Respiratory Rate: 18 Pulse Ox: 98 Oxygen Delivery Method: Room Air Assessment Airway patent: Yes Spontaneous unlabored respirations: Yes Mental status: Awake and Calm nausea: No Vomiting: No Anesthesia Complication: No Fluid Hydration Crystalloid volume administer (ml): 700 Total IV fluid infused: 700 Progress Note Anesthesia document: Postop Eval 1 completed: Yes
== END 2023-12-03 07:52 | disposition home or self-care (01) ==
LOC: EN 05:21 → AC 05:21
PROVIDERS: Anesthesiology; PCP Nurse Practitioner; Referring Provider Nurse Practitioner; Visit Provider Internal Medicine Gastroenterology
PROC: 0DJD8ZZ Inspection of Lower Intestinal Tract, Via Natural or Artificial Opening Endoscopic (ICD-10-PCS; CPT 45378; principal; 2023-12-03 06:25)
DX: Z12.11 Encounter for screening for malignant neoplasm of colon (principal); K21.9 Gastro-esophageal reflux disease without esophagitis; K63.89 Other specified diseases of intestine; K31.89 Other diseases of stomach and duodenum; K64.0 First degree hemorrhoids; K29.70 Gastritis, unspecified, without bleeding; Z80.0 Family history of malignant neoplasm of digestive organs; Z87.891 Personal history of nicotine dependence
CPT/HCPCS: 45380; 43239; 81025; 88305; 88342; J7120; J2405

== ENCOUNTER → 2024-01-14 | Outpatient (CLI) | payer OTHER, SELFPAY ==
--- NOTE | 2024-01-14 10:45 | RAD_ITS ---
INDICATION: left foot pain EXAMINATION/TECHNIQUE: X-RAY - LEFT XR Foot Min 3 Views 3 VIEWS COMPARISON: No relevant prior comparison study available FINDINGS: SOFT TISSUES: No soft tissue swelling or gas. No radiopaque foreign body. BONES/JOINTS: No acute fracture or subluxation.. Normal alignment. Preservation of the joint space.. No sclerotic or destructive changes observed. RAD/Foot min 3 Views IMPRESSION: No fracture or malalignment. Electronically Signed: Julio C Vu MD at 16:58 EDT ,
== END | disposition home or self-care (01) ==
PROVIDERS: PCP Nurse Practitioner; Referring Provider Nurse Practitioner; Visit Provider Nurse Practitioner
DX: M79.672 Pain in left foot (principal)
CPT/HCPCS: 73630

== ENCOUNTER → 2024-03-18 | Outpatient (CLI) | payer OTHER, SELFPAY ==
--- NOTE | 2024-03-18 14:28 | US_ITS ---
STUDY: ULTRASOUND BREAST - RIGHT REASON FOR EXAM: Female, 33 years old. Palpable lump in the right breast. TECHNIQUE: Axial and longitudinal images of the RIGHT breast were performed with a high resolution ultrasound transducer. # OF IMAGES: 25 COMPARISON: Comparison is made with prior mammogram dated March 18, 2024. FINDINGS: RIGHT Breast: The upper lateral aspect of the right breast was examined with ultrasound. There is a 2.4 cm x 2.2 cm x 1.1 cm well-defined hypoechoic solid nodule at the 11:00 position of the breast at 2 cm from the nipple. A similar appearing nodule measuring 1.9 cm x 0.7 cm x 1.5 cm is seen at the 9:00 position the breast at 5 cm from the nipple. These most likely represent fibroadenomas. Biopsy recommended. US/Breast Limited Unilateral IMPRESSION: 2 hypoechoic well-defined nodular density seen in the right breast as described. Biopsy recommended. ASSESSMENT CATEGORY: BIRADS Category 4: Suspicious - Biopsy Should Be Considered. A letter regarding these results will be sent to the patient by the facility within 30 days. Electronically Signed: Phill Hagen MD at 10:21 EST ,
--- NOTE | 2024-03-18 14:28 | BI_ITS ---
MAMMOGRAPHY - BILATERAL DIAGNOSTIC REASON FOR EXAM: Female, 33 years old. One month history of a right breast lump. Prior left excisional breast biopsy. PERTINENT HISTORY: Grandmother with breast cancer. TECHNIQUE: Digital bilateral breast asim (3D mammographic acquisition) in the CC and MLO projections. 2-D mediolateral oblique (MLO) and craniocaudad (CC) views of both breasts were obtained. CAD: Full Field Digital Mammography with Computer Added Detection was performed. COMPARISON: None. Baseline examination. FINDINGS: Breast Composition: The breasts are extremely dense, which lowers the sensitivity of mammography. There is a 2.1 cm x 1.8 cm well-defined nodule in the anterior upper aspect of the right breast. Adjacent to this, there is a similar-appearing well-defined nodular density measuring 1 cm x 0.8 cm. There is also evidence of a superficial well-defined nodule in the lateral anterior aspect of the breast on the right side measuring 1 cm x 1 cm. Correlation with ultrasound is recommended. No other significant abnormalities are identified. BI/DIAG MAMM W/CAD, BILAT IMPRESSION: Left breast nodules as described. Correlation with ultrasound recommended. ASSESSMENT CATEGORY: BIRADS Category 0: Incomplete. Need additional imaging evaluation. A letter regarding these results will be sent to the patient by the facility within 30 days. Approximately 10% of breast cancers are not detected by mammography. A normal mammogram should not delay biopsy of a clinically suspicious abnormality. Electronically Signed: Phill Hagen MD at 15:23 EST ,
== END | disposition home or self-care (01) ==
LOC: OPBI 14:28
PROVIDERS: PCP Nurse Practitioner; Referring Provider Obstetrics & Gynecology; Visit Provider Obstetrics & Gynecology
DX: N63.10 Unspecified lump in the right breast, unspecified quadrant (principal)
CPT/HCPCS: 76642; 77062; 77066; G0279

== ENCOUNTER → 2024-03-23 | Outpatient (CLI) | payer OTHER, SELFPAY ==
--- NOTE | 2024-03-23 16:00 | BRBX_PTH ---
PATIENT: SHONDA PUENTES LOC: [facility]#:[id number] AGE/SX: 33/F ROOM: RE03/23/[address]: Dr. Javier Altamirano MD : 1990 BED: DIS: 03/23/2024 SPEC #: [id number] RECD: 03/24/24 07:34 STATUS: YONNY REQ #: [id number] KEVEN: 03/23/24 16:[address]: Javier Altamirano DEPT: SURGICAL PATHOLOGY RECD BY: Jackeline Nolasco ENTERED: 03/24/24 10:10 SP TYPE: BREAST BX OTHR DR: Sheryl Zavala, MARTI-Nena Tissues: A - Right breast, NOS B - Right breast, NOS Procedures: Surgery Specimen Level IV HEADER OPERATION: Excisional breast biopsy PRE-OP DIAGNOSIS: Left breast masses TISSUE SUBMITTED: A- Right breast, 9o'clock - short suture margin/ long suture lateral, B- Right breast 11o'clock - short suture superior / long suture lateral Ischemic Time: 1 minute Fixation Time: 28 hours MICROSCOPIC DIAGNOSIS A. 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 B. Right breast lesion at 11o'clock, lumpectomy: Fibroadenoma. See Comment. 03/30/2024 COMMENT B. Focal features of benign phyllodes tumor cannot be ruled out. Clinical correlation is suggested. Case has been reviewed in consultation with Dr. Pompa who concurs with the above diagnosis. IDC:SJ MICROSCOPIC DESCRIPTION Slides are reviewed. GROSS DESCRIPTION A. Received in fixative is one container labeled with the patient's name and designated Right breast - 9o'clock. The specimen consists of a piece of youngblood-yellow fibroadipose tissue measuring 2.0 x 2.5 x 1.0cm. The specimen is oriented as follows: short suture- superior, long suture- lateral. A few white sutures are also noted. The specimen orientation presumed to be by the black suture. The specimen is inked as follows: anterior - yellow, posterior - black, superior - blue, inferior - green, medial - red and lateral - orange. This piece is serially sectioned. Also present in the container is a nodular piece of youngblood soft tissue measuring 2.0 x 1.5 x 1.2cm. Sections of this piece reveal youngblood solid cut surfaces. The entire specimen is submitted in six cassettes as follows: 1-3- oriented piece of fibroadipose tissue, 4-6- nodular piece of tissue. B. Received in fixative is one container labeled with the patient's name and designated Right breast - 11o'clock. The specimen consists of a piece of fibroadipose tissue measuring 4.0 x 3.2 x 1.5cm. The specimen is oriented as follows: short suture- superior, long suture- lateral. The specimen is inked as follows: anterior - yellow, posterior - black, superior - blue, inferior - green, medial - red and lateral - orange. Sections reveal youngblood solid nodule measuring 3.5 x 1.5 x 1.5cm. This nodule is present at the lateral, superior and anterior margin. The entire specimen is submitted in ten cassettes from lateral to medial margins. Cassette 1 contains the most lateral portion of the specimen, cassette 10 contains the medial portion of the specimen. SJ 03/24/2024 TC:1 CPT:12747t5 ADDENDUM ADDENDUM ADDENDUM ADDENDUM ADDENDUM ADDENDUM ADDENDUM ADDENDUM ADDENDUM ADDENDUM ADDENDUM ADDENDUM ADDENDUM ADDENDUM ADDENDUM ADDENDUM ADDENDUM ADDENDUM ADDENDUM ADDENDUM ADDENDUM ADDENDUM ADDENDUM ADDENDUM 04/06/2024 15:49 ADDENDUM 04/06/2024 15:49 ADDENDUM 04/06/2024 15:49 ADDENDUM 04/06/2024 15:49 ADDENDUM 04/06/2024 15:49 SOLID TUMOR IMMUNOHISTOCHEMICAL ANALYSIS REPORT FROM [facility] INTERPRETATION: Fibroepithelial lesion, favor fibroadenoma, focally extends to the inked margin (blue). REULTS: ANTIBODY CLONE DESCRIPTION RESULTS P63 4A4 Nuclear residential housekeeper factor, basal Myoepithelial cells - positive And myoepithelial cells E-Cadherin 36 Epithelial cells, ductal mammary cells, Pronormoblasts Positive CK5/6 D5/16 B4 Squamous and mesothelial cells Normal staining pattern ER SP-1 Estrogen receptor Positive Please see complete report in e-chart or EMR
== END | disposition home or self-care (01) ==
LOC: LABSPEC 03-24 08:15
PROVIDERS: PCP Nurse Practitioner; Referring Provider Surgery; Visit Provider Surgery
DX: D24.1 Benign neoplasm of right breast (principal); D24.2 Benign neoplasm of left breast
CPT/HCPCS: 88305

== ENCOUNTER → 2025-03-19 | Outpatient (CLI) | payer OTHER, SELFPAY ==
--- NOTE | 2025-03-19 13:59 | US_ITS ---
PROCEDURE: BREAST LIMITED UNILATERAL 03/19/2025 REASON FOR EXAM: F, Age 34 y/o , FIBROADENOMA, FIBROCYSTIC BREAST CHANGES History of prior right excisional breast biopsy. Pain and swelling along the scar. COMPARISON: Prior mammogram done earlier in the day.. TECHNIQUE: Procedure Code: USBRSTLIMIT Modality: US Procedure: BREAST LIMITED UNILATERAL FINDINGS: The area of the surgical scar in the upper-outer aspect of the right breast was examined with ultrasound. There is evidence of a 2.7 cm 2.1 cm 1.1 cm hypoechoic soft tissue prominence at the level of the scar. This most likely represents postoperative changes. US/Breast Limited Unilateral IMPRESSION: Postoperative changes at the operative scar. BI-RADS 3: PROBABLY BENIGN. RECOMMENDATION: 6 Month Follow-up Reading Location: [place] [id number]
--- NOTE | 2025-03-19 14:00 | BI_ITS ---
EXAM: DIAG MAMM W/CAD, BILAT N/A CLINICAL HISTORY: F, Age 34 y/o , FIBROADENOMA, FIBROCYSTIC BREAST CHANGES. Right excisional breast biopsy. TECHNIQUE: Procedure Code: [id number] Modality: MG Procedure: DIAG MAMM W/CAD, BILAT. COMPARISON: Prior exam(s) dated March 18, 2024.. FINDINGS: TISSUE DENSITY: The breasts are extremely dense, which lowers the sensitivity of mammography. Bilateral Breast Mammographic Findings: No significant masses, calcifications or other abnormalities are identified. Since prior study, the patient underwent excisional biopsy of the 2 nodules in the upper lateral aspect of the right breast. No suspicious masses, areas of developing architectural distortion, or suspicious calcifications. There has been no significant interval change. BI/DIAG MAMM W/CAD, BILAT IMPRESSION: Status post resection of the fibroadenomas in the upper-outer quadrant of the r ight breast. OVERALL FINAL ASSESSMENT BI-RADS 2: BENIGN RECOMMENDATION: Routine annual follow-up in 1 Year Additional Recommendation none A letter with findings and recommendations will be mailed to the patient. Reading Location: [place] [id number]
--- OUTSIDE RECORDS SUMMARY | 2025-03-19 16:17 | XMS RPT_ITS | CCD ---
Author Organization [facility] Care Team Providers Care Director Of [facility] Name Role Phone Dr. Newton Chan Referring Provider [phone] Nereyda PSYCHIATRIC AIDE, PSYCHIATRIC AIDE-C [place] Primary Care Provider Nereyda PSYCHIATRIC AIDE, PSYCHIATRIC AIDE-C [place] Attending Provider [phone] Nereyda PSYCHIATRIC AIDE, PSYCHIATRIC AIDE-C [place] Referring Provider [phone] Dr. Ofelia Carver Primary Care Provider Dr. Ofelia Carver Attending Provider [phone] Dr. Ofelia Carver Referring Provider [phone] JOI Meraz Attending Provider [phone] Dr. Hardeep Patrick Attending Provider [phone] Lucas PSYCHIATRIC AIDE-C, Sheryl Primary Care Physician [phone] Lucas PSYCHIATRIC AIDE-C, Sheryl Referring Provider [phone] Dr. Ofelia Carver MD Attending Physician [phone] Ferullo, Sheryl Primary Care Unavailable Javier Altamirano Attending Unavailable Ferullo, Sheryl Referring Unavailable Ferullo, Sheryl Primary Care Unavailable Harmony Koroma Attending Unavailable Ferullo, Sheryl Referring Unavailable Ferullo, Sheryl Primary Care Unavailable Javier Altamirano Attending Unavailable Ferullo, Sheryl Referring Unavailable Ferullo, Sheryl Referring Unavailable Ferullo, Sheryl Primary Care Unavailable Javier Altamirano Attending Unavailable Ferullo, Sheryl Referring Unavailable Ferullo, Sheryl Primary Care Unavailable Javier Altamirano Attending Unavailable Cami Modi Attending Unavailable Ferullo, Sheryl Referring Unavailable Ofelia Carver Primary Care Unavailable Ferullo, Sheryl Primary Care Unavailable Ofelia Carver Attending Unavailable Sheryl Zavala Referring Unavailable Cami Modi Attending Unavailable Cami Modi Referring Unavailable Sheryl Zavala Primary Care Unavailable Sheryl Zavala Primary Care Unavailable Javier Altamirano Attending Unavailable Javier Altamirano Referring Unavailable Cami Modi Attending Unavailable Cami Modi Referring Unavailable Ofelia Carver Primary Care Unavailable Sheryl Zavala Primary Care Unavailable Javier Altamirano Attending Unavailable Sheryl Zavala Referring Unavailable Medications Current Medications Medication Drug Class(es) Dates Sig (Normalized) Sig (Original) [place] (Nk) (2 sources) Start: 04-07-2024 [place] (Nk) A ctive April 07, 2024 1:00am Start: 02-26-2022 [place] (Nk) A ctive February 26, 2022 12:00am Completed/Discontinued Medications Medication Drug Class(es) Dates Sig (Normalized) Sig (Original) acetaminophen 325 mg / oxyCODONE hydrochloride 5 mg oral tablet (3 sources) Opioid Agonist Start: 07-21-2015 End: 03-20-2018 Oxycodone-Acetamino phen 1 TABLET tablet Discontinued 1 - 2 {tbl} PO EVERY 4 HOURS NEEDED as needed for Pain July 21, 2015 12:00am March 20, 2018 2:44pm Start: 07-21-2015 End: 03-20-2018 take 1 tablet by mouth every four hours as needed Oxycodone-Acetaminophen Discontinued 1 - 2 TABLET PO EVERY 4 HOURS NEEDED July 21, 2015 12:00am March 20, 2018 2:44pm amoxicillin 875 mg / clavulanate 125 mg oral tablet (3 sources) Penicillin-class Antibacterial Start: 05-26-2019 End: 06-05-2019 Amoxicillin-Pot Clavulanate (Augmentin) 875-125 mg tablet Discontinued 1 {tbl} PO Q12H 20 10 May 26, 2019 1:00am June 04, 2019 1:00am June 05, 2019 1:08am Acute sinusitis, unspecified busPIRone hydrochloride 5 mg oral tablet (3 sources) Start: 02-23-2021 End: 01-02-2022 take 1 tablet by mouth twice daily Buspirone 5 mg tablet Discontinued 5 mg PO TWICE A DAY 60 1 February 23, 2021 12:00am January 02, 2022 10:29am cephalexin 500 mg oral capsule (3 sources) Cephalosporin Antibacterial Start: 10-08-2018 End: 10-15-2018 take 1 capsule by mouth every twelve hours Cephalexin (Keflex) 500 mg capsule Discontinued 500 mg PO Q12H 14 7 0 October 08, 2018 12:00am October 14, 2018 12:00am October 15, 2018 12:06am docusate sodium 100 mg oral capsule (3 sources) Start: 09-28-2018 End: 11-21-2018 Docusate Sodium 100 MG capsule Discontinued 250 mg PO DAILY NEEDED as needed for Constipation September 28, 2018 12:00am November 21, 2018 1:43pm Start: 09-28-2018 End: 11-21-2018 take 250 mg by mouth once daily as needed Docusate Sodium Discontinued 250 MG PO DAILY NEEDED September 28, 2018 12:00am November 21, 2018 1:43pm ferrous sulfate 159 mg extended release oral tablet (3 sources) Start: 09-28-2018 End: 11-21-2018 Ferrous Sulfate, Dried 159 M G tablet extended release Discontinued 27 mg PO DAILY September 28, 2018 12:00am November 21, 2018 1:43pm supplement Start: 09-28-2018 End: 11-21-2018 take 27 mg by mouth once daily Ferrous Sulfate, Dried Discontinued 27 MG PO DAILY September 28, 2018 12:00am November 21, 2018 1:43pm omeprazole 20 mg delayed release oral capsule (1 source) Proton Pump Inhibitor Start: 12-05-2023 End: 03-06-2024 take 1 capsule by mouth twice daily Omeprazole 20 mg capsule,delayed release(DR/EC) Discontinued 20 mg PO TWICE A DAY 60 1 December 05, 2023 12:00am March 06, 2024 2:39pm oxyCODONE hydrochloride 5 mg oral tablet (1 source) Opioid Agonist Start: 03-24-2024 End: 03-27-2024 take 1 tablet by mouth every six hours as needed for pain Oxycodone 5 mg tablet Discontinued 5 mg PO EVERY 6 HOURS as needed for pain 10 3 0 March 24, 2024 March 26, 2024 1:00am March 27, 2024 1:10am Status post excisional biopsy Other specified postprocedural states Pnv 60-Aetm-Sohzq Alhv-Shqnw-6 30 mg iron-10 mg iron-1 mg capsule (1 source) Start: 03-20-2018 End: 11-21-2018 Pnv 85-Wcby-Ehuqf Rjrh-Zkcny-5 30 mg iron-10 mg iron-1 mg capsule Discontinued 1 NMA PO DAILY 0 March 20, 2018 1:00am November 21, 2018 1:46pm vitamin#30 30 mg iron-10 mg iron-folic acid 1 mg-omg3 capsule (2 sources) Start: 03-20-2018 End: 11-21-2018 take 1 capsule by mouth once daily vitamin#30 30 mg iron-10 mg iron-folic acid 1 mg-omg3 capsule Discontinued 1 CAP PO DAILY March 20, 2018 1:00am November 21, 2018 1:46pm sertraline 50 mg oral tablet (15 sources) Serotonin Reuptake Inhibitor Start: 08-11-2020 End: 02-23-2021 take 1 tablet by mouth once daily Sertraline (Zoloft) 50 mg tablet Discontinued 50 mg PO DAILY 90 August 11, 2020 12:00am February 23, 2021 8:14am Start: 02-17-2020 End: 08-11-2020 take 1 tablet by mouth once daily Sertraline (Zoloft) 25 mg tablet Discontinued 25 mg PO DAILY 90 February 17, 2020 10:53am August 11, 2020 12:46pm Start: 10-20-2018 End: 01-19-2020 take 1 tablet by mouth once daily Sertraline (Zoloft) 50 mg tablet Discontinued 50 mg PO DAILY 90 2 December 08, 2018 2:54pm January 19, 2020 10:33am valACYclovir 1000 mg oral tablet (3 sources) Herpesvirus Nucleoside Analog DNA Polymerase Inhibitor, Herpes Simplex Virus Nucleoside Analog DNA Polymerase Inhibitor, Herpes Zoster Virus Nucleoside Analog DNA Polymerase Inhibitor Start: 04-26-2018 End: 05-17-2018 Valacyclovir (Valtrex) 1 gram tablet Discontinued 1000 mg PO TWICE A DAY 6 3 6 April 26, 2018 1:00am May 16, 2018 1:00am May 17, 2018 1:09am zolpidem tartrate 10 mg oral tablet (3 sources) gamma-Aminobutyric Acid-ergic Agonist Start: 07-13-2015 End: 03-20-2018 take 1 tablet by mouth at bedtime as needed Zolpidem 10 MG tablet Discontinued 10 mg PO AT BEDTIME NEEDED as needed for Insomnia July 13, 2015 1:00am March 20, 2018 2:44pm Problems Active Problems Problem Classification Problem Date Documented Da te Episodic/Chronic Administrative/social admission (1 source) Persons encountering health services in other specified circumstances; Translations: [Other reasons for seeking consultation] 01-08-2023 Episodic Anxiety disorders (3 sources) Anxiety; Translations: [Anxiety disorder, unspecified] 02-23-2021 Chronic Complications of surgical procedures or medical care (1 source) Postoperative hematoma of breast; Translations: [Hematoma complicating a procedure] 01-26-2025 Episodic Esophageal disorders (2 sources) Gastroesophageal reflux disease; Translations: [Gastro-esophageal reflux disease without esophagitis] 01-26-2025 Chronic Nonmalignant breast conditions (1 source) Diffuse cystic mastopathy of unspecified breast; Translations: [Diffuse cystic mastopathy of unspecified breast] Onset: Chronic Nutritional deficiencies (1 source) Vitamin D deficiency; Translations: [Vitamin D deficiency, unspecified] 01-26-2025 Chronic Other and unspecified benign neoplasm (1 source) Benign neoplasm of unspecified breast; Translations: [Benign neoplasm of unspecified breast] Onset: Episodic Other connective tissue disease (1 source) Pain in left foot; Translations: [Pain in left foot] 01-14-2024 Episodic Other ear and sense organ disorders (1 source) Hearing difficulty; Translations: [Unspecified hearing loss, unspecified ear] 01-26-2025 Chronic Other gastrointestinal disorders (1 source) Altered bowel function; Translations: [Change in bowel habit] 01-26-2025 Episodic Other lower respiratory disease (1 source) Dyspnea on exertion; Translations: [Shortness of breath] 01-26-2025 Episodic Residual codes; unclassified (1 source) Immunization not carried out because of patient refusal; Translations: [Vaccination not carried out because of patient refusal] 01-08-2023 Episodic Residual codes; unclassified (1 source) Family history of malignant neoplasm of digestive organs; Translations: [Family history of malignant neoplasm of gastrointestinal tract] 01-08-2023 Episodic Residual codes; unclassified (2 sources) Family history of cancer of colon; Translations: [Family history of malignant neoplasm of digestive organs] 01-26-2025 Episodic Comment on above: Considering genetic testing Screening and history of mental health and substance abuse codes (1 source) Patient encounter status; Translations: [Encounter for screening for depression] 01-26-2025 Episodic Varicose veins of lower extremity (5 sources) Varicose veins of lower extremity; Translations: [Varicose veins of bilateral lower extremities with pain] 02-12-2023 Episodic Past or Other Problems Problem Classification Problem Date Documented Date Episodic/Chronic Nonmalignant breast conditions (3 sources) Hematoma of right breast; Translations: [Other specified disorders of breast] Onset: 04-15-2024 01-26-2025 Episodic Comment on above: Patient 34-year-old female with recognized right breast hematoma after excisional biopsy of 2 fibroadenomas of the right breast 03/23/2024 but unfortunately experienced spontaneous drainage of this clot via partial dehiscence of her closure. An attempt was made during her last visit to try to reclose this incision with interrupted sutures but these were disrupted as well. Upon my exam I shared I felt strongly we needed to evacuate the underlying hematoma as opposed to a significant risk for infection and also an impediment to her ongoing wound healing. I discussed possibly proceeding to the operating room for this purpose versus proceeding here in clinic. Initially there was an inclination to proceeding to the operating room, however, due to concerns for access and schedule limitations as we approach both the weekend and upcoming holiday I suggested we proceed immediately in clinic given that we were well equipped to do so. Mrs. Hand was immediately receptive. Procedure was undertaken uneventfully and full details are given in the procedures section of this note. I will plan to see her back for a wound care visit in a week and a half. For the interim I have asked her to remove half of the gauze strip tomorrow and then remove it fully in 2 days. She is advised to be careful with how much water is allowed to accumulate within this wound. It is my hope that at her follow-up visit she will be ready to have the remaining nylon sutures removed but we will see how she heals. Given that I believe her bleeding occurred several weeks ago and that she is simply in the healing phase of her wound I did approve her for return to work this weekend as well but cautioned her against exerting herself and lifting.Update 05/15/2024: Patient appears significantly improved at today's visit with no further drainage and scabbing of the opening to her subcutaneous hematoma site. Given that the sutures no longer appear to be functioning to hold the skin edges and apposition I elected to remove them at today's visit. However, once the sutures were removed there was slight gapping of the skin but when the area was probed it does not appear to extend down to the same depth noted previously. I thus suggested to Mrs. Yazan perales that she may go on to experience some serosanguineous drainage until this is more fully healed. As such I recommended that she keep the area covered during the day but open to air at night. I also suggested that she continue showering as normal and wait for the Steri-Strips to fall off that was placed and lieu of the sutures. Now status post exci sional breast biopsy x 2. Pathology returned consistent with fibroadenomas at both locations. Pathology did note the inability to fully exclude a phyllodes tumor for the largest fibroadenoma. Patient was counseled about these biopsy results and I have recommended simply close surveillance through clinical breast exams. Patient provided a copy of pathology report at the conclusion of today's visit. Other and unspecified benign neoplasm (1 source) Benign neoplasm of right breast; Translations: [Benign neoplasm of right breast] Onset: 04-20-2024 Episodic Other screening for suspected conditions (not mental disorders or infectious disease) (2 sources) Ultrasonography of breast abnormal; Translations: [Other abnormal and inconclusive findings on diagnostic imaging of breast] Onset: 03-24-2024 01-26-2025 Episodic Comment on above: Patient is a 33-year -old female with no significant family history for breast cancer who presents with new palpable right breast mass and personal history of 2 previously excised fibroadenomas of the left breast. From her history patient gavea description of fibrocystic change in addition to a history of fibroadenomas and this certainly seems to be the case from her breast exam or identify a number of areas of firmer lobular architecture. However, the ultrasound was able to confirm the presence of 2 superficial well-circumscribed hypoechoic areas that seem to clearly match patient's index ultrasound findings which radiology had designated as BI-RADS 4 suspicious. There was a slight discrepancy with the position of the largest and first mass described given that it was located between 4 and 5 cm from the nipple along the 11 o'clock position rather than 2 cm as stated by radiology report. Despite this discrepancy I was confident that we had identified the areas of interest and so, with the superficial location of the lesions, and patient's cooperation I offered in office excisional biopsy x 2. Patient tolerated the procedure well despite the areas of interest being densely adherent to the underlying fibrocystic change and the specimen was oriented short superior long lateral for pathology. A follow-up visit for wound check and review of pathology was made. Postprocedural wound care instructions were discussed. 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: No Is patient in pain?: No Allergies No Known Allergies Allergy (Verified 03/08/25 13:29) Medications ???Medication ???Instructions ???Recorded ???Confirmed ???Type NK 04/07/24 03/08/25 History Is last menstrual period known: Yes Last Menstrual Period: 03/01/25 Post menopausal: No Patient : No : No [facility] History Family history of colon cancer in mother Lump of right breast Abnormal ultrasound of breast Hematoma of right breast Wears glasses Wears contact lenses History of edema Former smoker PONV (postoperative nausea and vomiting) Anxiety Varicose veins of both lower extremities Left breast lump Surgical History Status post excisional biopsy S/P breast biopsy, right [place] teeth extracted H/O vein stripping H/O lumpectomy Family History Father Hypertension Grandmother Colon cancer, Onset Age: 70 Mother Colon cancer, Onset Age: 62 Grandfather Colon cancer Cancer Grandfather Esophageal cancer Social History adopted: No household members: spouse and children housing: house number of children: 1 current occupational status: employed current occupation: [employer] pets and animals: Yes Smoking Status: Former smoker quit date: 05/06/09 Electronic Cigarette Use: not used second hand exposure: No alcohol intake: current alcohol intake frequency: a few times a week substance use type: does not use caffeine: Yes what type of physical activity do you participate in: walking seatbelt use: always do you feel safe at home: Yes additional social history: - Becky ([employer]) History 1 Elective abortions Hx Para 1 Spontaneous abortions Hx # Term Pregnancies Ectopic pregnancies Hx # Pregnancies Multiple births # of living children 1 Past Pregnancies Del. Date Name GA/Weeks Outcome Route Bth Weight Gen Labor Lgth Anesthesia Del Locatn Provider FOB Unknown 2019 Tristan live - full term 8lbs 2 oz Male 15 hours epidural WC H PENELOPE Aurelianoyle HPI Encounter for routine gynecological examination Details: DIANA HAND is a 34 year old who presents for annual exam. HPI: The patient is a 34-year-old female with a history of multiple lumpectomies presenting for an annual visit. Breast Health - Underwent multiple lumpectomies, with the most recent one performed last year. - Reports a prolonged healing process with the most recent lumpectomy, including the development of a hematoma. - Currently, the patient reports no significant issues but mentions that the healing process was more challenging compared to previous surgeries. - Denies any changes in breast symptoms since the last surgery. - Reports a nodular feeling in the right breast, particularly in the area where the lumpectomies were performed. - Denies any discrete masses or changes in sensation related to caffeine intake or menstrual cycle. Menstrual History - Reports regular menstrual cycles, occurring at the same time every month. - Denies heavy or painful periods, with bleeding lasting less than a week. Contraception Counseling Management - Currently using the pull and pray method for prevention. - Open to the possibility of but mentions that her partner has discussed getting a vasectomy. - Taking a vitamin. Sexual Health - Reports occasional vaginal dryness during sexual activity. - Currently using lfbb-[id number]-[id number] lubricants, which are effective. Urinary Pelvic Floor Issues - Experiences mild stress urinary incontinence, particularly when sneezing. - Performing Kegel exercises, which are effective. Family History - Mother was diagnosed with colon cancer at the age of 62-63. - No family history of breast, uterine, or ovarian cancer. Social History - Mother of two children, aged 9 and 12. 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 Subjective Sections: FMHx - Colon cancer (mother) - Denies family history of breast, uterine, or ovarian cancer Current Meds (more content not included)... Normal [facility] Internal Medicine Office Vis narda 01-25-2025 Internal Medicine Office Visit [facility] Internal Medicine [address] [place] [address] [place] [address] OFFICE VISIT Date of Service: 01/26/25 MR#: [id number] Acct: [id number] Name: DIANA HAND Rep #: [id number] : 1990 Provider: Dr. Ofelia woods MD Age/Sex: 34/F Location[place] [facility] [place] Status: Signed Intake Vital Signs 03/23/24 14:42 01/26/25 09:59 Height 5 ft 7 in 5 ft 7 in Weight: 153 lb 4 oz BMI 24.0 BP 102/56 L Blood Pressure Location Lt brachial Position Sitting Respiration 16 Pulse 60 Pulse Source Monitor Temp 96.6 F L Temp Source Temporal Pulse Oximetry (%) 100 Oxygen Delivery Method room air Intake Visit Reasons: YEARLY Chief Complaint: yearly Deputy Insurance Commissioner Required: No Accompanied by: Self Is patient in pain?: No Allergies No Known Allergies Allergy (Verified 01/26/25 09:54) Medications ???Medication ???Instructions ???Recorded ???Confirmed ???Type NK 04/07/24 01/26/25 History Nurse's Note: yearly visit tail end of cold and head congestion [facility] Medical History (Updated 01/26/25 @ 11:[address] Ofelia Carver MD) Family history of colon cancer in mother Lump of right breast Abnormal ultrasound of breast Hematoma of right breast Wears glasses Wears contact lenses History of edema Former smoker PONV (postoperative nausea and vomiting) Anxiety Varicose veins of both lower extremities Left breast lump Surgical History (Updated 01/26/25 @ 10:[address] Ofelia Carver MD) Status post excisional biopsy S/P breast biopsy, right [place] teeth extracted H/O vein stripping H/O lumpectomy Family History (Updated 01/26/25 @ 10:[address] Ofelia Carver MD) Father Hypertension Grandmother Colon cancer, Onset Age: 70 Mother Colon cancer, Onset Age: 62 Grandfather Colon cancer Cancer Grandfather Esophageal cancer Social History (Updated 01/26/25 @ 10:[address] Ofelia Carver MD) adopted: No household members: spouse and children housing: house number of children: 1 current occupational status: employed current occupation: [employer] pets and animals: Yes Smoking Status: Former smoker quit date: 05/06/09 Electronic Cigarette Use: not used second hand exposure: No alcohol intake: current alcohol intake frequency: a few times a week substance use type: does not use caffeine: Yes what type of physical activity do you participate in: walking seatbelt use: always do you feel safe at home: Yes additional social history: - Jyle ([employer]) Questionnaire PQH-9 BMS Over the last 2 weeks, how often have you been bothered by any of the following problems? 1. Little interest or pleasure in doing things: not at all 2. Feeling down, depressed, or hopeless: not at all 3. Trouble falling or staying asleep, or sleeping too much: not at all 4. Feeling tired or having little energy: not at all 5. Poor appetite or overeating: not at all 6. Feeling bad about yourself - or that you are a failure or have let yourself and your family down: not at all 7. Trouble concentrating on things, such as reading the newspaper or watching television: not at all 8. Moving or speaking so slowly that other people could have noticed? - Or the opposite - being so fidgety or restless that you have been moving around a lot more than usual: not at all 9. Thoughts that you would be better off or of hurting yourself in some way: not at all Total score: 0 If you checked off any problems, how difficult have these problems made it for you to do your work, take care of things at home, or get along with other people?: not difficult at all Source: Developed by Drs. David Cobian, Michael Emery and colleagues, with an educational ron from [employer]. LEAH-7 BMS LEAH-7 Feeling nervous, anxious, or on edge: 0 = Not at all Not being able to stop or control worryin = Not at all Worrying too much about different things: 0 = Not at all Trouble relaxin = Not at all Being so restless that it is hard to sit still: 0 = Not at all Becoming easily annoyed or irritable: 0 = Not at all Feeling afraid as if something awful might happen: 0 = Not at all Total LEAH-7 score (0-4 normal; 5-9 mild; 10-14 moderate; 15-21 severe): 0 Source: Developed by Drs. David Cobian, Angie Moura, Michael Garcia and colleagues, with an educational ron from [employer]. HPI HPI Chief Complaint: yearly Details: DIANA HAND, is a 34 F who presents to the office today for a well visit. She will be doing her employee labs and is due for some screening. She has an appointment with OBGYN scheduled for March. She will get her flu shot through work and previously declined any COVID vaccines. She doesn't smoke and doesn't take any prescriptio (more content not included)... Normal [facility] Surgery Visit Reporton 05-15 Surgery Visit Report [facility] [address] [place] [address] OFFICE VISIT Date of Service: 05/15/24 MR#: [id number] Acct: [id number] Name: DIANA HAND Rep #: [id number] : 1990 Provider: Dr. 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 Is patient in pain?: No Allergies No Known Allergies Allergy (Verified 05/15/24 09:48) Medications ???Medication ???Instructions ???Recorded ???Confirmed ???Type NK 04/07/24 05/15/24 History Have you fallen in the past year?: No PFSH Medical History Hematoma of right breast Wears glasses Wears contact lenses History of edema Former smoker PONV (postoperative nausea and vomiting) Anxiety Varicose veins of both lower extremities Left breast lump Surgical History S/P breast biopsy, right [place] teeth extracted H/O vein stripping H/O lumpectomy Family History Father Hypertension Grandmother Colon cancer, Onset Age: 70 Mother Colon cancer, Onset Age: 62 Grandfather Colon cancer Cancer Social History adopted: No household members: spouse and children housing: house number of children: 0 current occupational status: employed current occupation: [employer] pets and animals: Yes Smoking Status: Former smoker Electronic Cigarette Use: not used second hand exposure: No alcohol intake: current alcohol intake frequency: a few times a week substance use type: does not use caffeine: Yes what type of physical activity do you participate in: walking seatbelt use: always do you feel safe at home: Yes additional social history: - Becky ([employer]) HPI HPI HPI: She is status post 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 She has last seen 05/01/2024 when she underwent evacuation of the subcutaneous clot. She reports today stating that she has had no significant drainage and has seen the area scab over. She denies any observation of redness or fever/chills. Below is recapitulated from patient's prior visit for ease review: Patient is a 34-year-old female who follow-ups from a recent office visit on 04/22/2024 with JOI Izquierdo where she received 2 sutures after being diagnosed with a draining right breast hematoma. 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 A hematoma was recognized shortly after the procedure and believed to be related to an overly quick return to activity. They have been managed expectantly until patient reported partial dehiscence of the suture line just over a week ago. She reports today feeling discouraged that she has experienced nearly daily bloody drainage and some pain. She has also noticed some sloughing of the skin. She specifically denies any observation of purulent material or of any experience of fevers or chills. ROS General General: Yes weight change and fatigue; No appetite, colon cancer, breast cancer or weakness HEENT HEENT: No difficulty swallowing, eye injury, eye surgery, swollen glands or hoarseness Endo Endocrine: No thyroid disease, diabetes mellitus, thyroid cancer, Hair loss, heat intolerance or cold intolerance Skin Skin: No rash or changing moles Breast Breast: Yes right breast lump, abnormal mammogram and abnormal US; No left breast lump, nipple discharge, breast pain or breast enlargement Musc Musculoskeletal: No back problems, arthritis, rheumatoid arthritis, gout or joint pain Cardio Cardiovascular: No murmur, pacemaker, heart disease, atrial fibrillation, high blood pressure, heart attack, heart stent, palpitations, shortness of breat with exertion or chest pain Psych Psychiatric: No depression, anxiety or hearing voices Resp Respiratory: Yes shortness of breath, No sleep apnea, No cough, No COPD, No asthma, No emphysema and No wheezing Gastro Gastrointestinal: No abdominal pain, No nausea or vomiting, No diarrhea, No constipation, No blood in stool, No acid reflux, Yes hemorrhoids, No ulcers, No gallbladder problem and No black,tarry stools Kashif Hematologic: No blood thinners, No blood disorders, No bleeding, No anemia and No blood clots Neuro Neurologic: No system reviewed and no additional complaints, except as documented, No as per HPI, No abnormal gait, No abnormal hearing, No abnormal movement (more content not included)... Normal [facility] Surgery Visit Reporton 05-01 Surgery Visit Report [facility] [address] [place] [address] OFFICE VISIT Date of Service: 05/01/24 MR#: [id number] Acct: [id number] Name: DIANA HAND Rep #: [id number] : 1990 Provider: Dr. Javier avila MD Age/Sex: 34/F Location: [facility] Status: Signed Intake Vital Signs 03/23/24 14:42 Height 5 ft 7 in Intake Visit Reasons: WOUND CHECK FOR BREAST Chief Complaint: wound check for breast Is patient in pain?: No Allergies No Known Allergies Allergy (Verified 05/01/24 08:23) Medications ???Medication ???Instructions ???Recorded ???Confirmed ???Type NK 04/07/24 05/01/24 History PFSH Medical History (Updated 05/01/24 @ 18:[address] Javier Altamirano MD) Hematoma of right breast Wears glasses Wears contact lenses History of edema Former smoker PONV (postoperative nausea and vomiting) Anxiety Varicose veins of both lower extremities Left breast lump Surgical History S/P breast biopsy, right [place] teeth extracted H/O vein stripping H/O lumpectomy Family History Father Hypertension Grandmother Colon cancer, Onset Age: 70 Mother Colon cancer, Onset Age: 62 Grandfather Colon cancer Cancer Social History adopted: No household members: spouse and children housing: house number of children: 0 current occupational status: employed current occupation: [employer] pets and animals: Yes Smoking Status: Former smoker Electronic Cigarette Use: not used second hand exposure: No alcohol intake: current alcohol intake frequency: a few times a week substance use type: does not use caffeine: Yes what type of physical activity do you participate in: walking seatbelt use: always do you feel safe at home: Yes additional social history: - Becky ([employer]) HPI HPI HPI: Patient is a 34-year-old female who follow-ups from a recent office visit on 04/22/2024 with JOI Izquierdo where she received 2 sutures after being diagnosed with a draining right breast hematoma. 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 A hematoma was recognized shortly after the procedure and believed to be related to an overly quick return to activity. They have been managed expectantly until patient reported partial dehiscence of the suture line just over a week ago. She reports today feeling discouraged that she has experienced nearly daily bloody drainage and some pain. She has also noticed some sloughing of the skin. She specifically denies any observation of purulent material or of any experience of fevers or chills. ROS General General: Yes weight change and fatigue; No appetite, colon cancer, breast cancer or weakness HEENT HEENT: No difficulty swallowing, eye injury, eye surgery, swollen glands or hoarseness Endo Endocrine: No thyroid disease, diabetes mellitus, thyroid cancer, Hair loss, heat intolerance or cold intolerance Skin Skin: No rash or changing moles Breast Breast: Yes right breast lump, abnormal mammogram and abnormal US; No left breast lump, nipple discharge, breast pain or breast enlargement Musc Musculoskeletal: No back problems, arthritis, rheumatoid arthritis, gout or joint pain Cardio Cardiovascular: No murmur, pacemaker, heart disease, atrial fibrillation, high blood pressure, heart attack, heart stent, palpitations, shortness of breat with exertion or chest pain Psych Psychiatric: No depression, anxiety or hearing voices Resp Respiratory: Yes shortness of breath, No sleep apnea, No cough, No COPD, No asthma, No emphysema and No wheezing Gastro Gastrointestinal: No abdominal pain, No nausea or vomiting, No diarrhea, No constipation, No blood in stool, No acid reflux, Yes hemorrhoids, No ulcers, No gallbladder problem and No black,tarry stools Kashif Hematologic: No blood thinners, No blood disorders, No bleeding, No anemia and No blood clots Neuro Neurologic: No system reviewed and no additional complaints, except as documented, No as per HPI, No abnormal gait, No abnormal hearing, No abnormal movements, No abnormal speech, No behavioral changes, No burning sensations, No confusion, No convulsions, No disequilibrium, No dizziness, No localized weakness, No frequent falls, No headache(s), No lack of coordination, No loss of vision, No memory loss, Yes numbness, No other visual disturbances, No radicular pain, Yes restless legs, No sensory deficit, No syncope, Yes tingling, No tremor(s), No weakness and No other Exam Const General: cooperative and anxious Orientation: alert, awake and oriented x3 Chest Other: Approxi (more content not included)... Normal [facility] Surgery Visit Reporton 04-22 Surgery Visit Report [facility] [address] [place] [address] OFFICE VISIT Date of Service: 04/22/24 MR#: [id number] Acct: [id number] Name: DIANA HAND Rep #: [id number] : 1990 Provider: MATT shen Age/Sex: 33/F Location: [facility] Status: Signed Intake Vital Signs 03/23/24 14:42 Height 5 ft 7 in Weight: 155 lb BMI 24.3 BP 117/84 H Blood Pressure Location Rt brachial Position Sitting Respiration 18 Pulse 64 Pulse Source Monitor Temp 98.2 F Temp Source Temporal Pulse Oximetry (%) 99 Oxygen Delivery Method room air Intake Visit Reasons: 2 W FU Chief Complaint: incision open Is patient in pain?: No Allergies No Known Allergies Allergy (Verified 04/22/24 12:51) Medications ???Medication ???Instructions ???Recorded ???Confirmed ???Type NK 04/07/24 04/22/24 History Subjective Details: Patient contacted our office this morning noting that her incision opened up. She notes that she was up in the middle of the night with her son and she noticed something wet on her shirt and thought may be it was him drooling and she looked down and noted that her incision was bleeding. She notes she has been performing warm compresses. She is s/p right breast excisional breast biopsy x 2. Her procedure was complicated by a significant hematoma. She notes the swelling from the hematoma has improved and soften. She notes the firmness especially decreased following the incision opening any draining. Objective Details: Right lateral incision- right lateral aspect with open wound with evidence of hematoma consistent fluid and substance. Two 4-0 Nylon sutures were placed successfully followed by an op-site and pressure dressing. Coding Level of Care Code Off vis,est,level 3 Diagnoses Breast hematoma after procedure [facility] Medical History (Updated 04/22/24 @ 15:56 by Harmony TAMEZ PA-C) Wears glasses Wears contact lenses History of edema Former smoker PONV (postoperative nausea and vomiting) Anxiety Varicose veins of both lower extremities Left breast lump Surgical History (Updated 03/25/24 @ 10:06 by Chantel Sharp) S/P breast biopsy, right [place] teeth extracted H/O vein stripping H/O lumpectomy Family History Father Hypertension Grandmother Colon cancer, Onset Age: 70 Mother Colon cancer, Onset Age: 62 Grandfather Colon cancer Cancer Social History adopted: No household members: spouse and children housing: house number of children: 0 current occupational status: employed current occupation: [employer] pets and animals: Yes Smoking Status: Former smoker Electronic Cigarette Use: not used second hand exposure: No alcohol intake: current alcohol intake frequency: a few times a week substance use type: does not use caffeine: Yes what type of physical activity do you participate in: walking seatbelt use: always do you feel safe at home: Yes additional social history: - [employer] ([employer]) Assessment and Plan (No Qualifiers) Assessment and Plan (1) Breast hematoma after procedure: Status: Acute Plan: Recommend following up in 10-14 days to have the sutures removed Continue with warm compresses Continue to wear a bandage over top of the incision Recommend continued compressive type bra Follow-up 10-14 days 04/22/24 5998 Date Harmony TAMEZ PA-C Cosigner Signature: Date (if applicable) CC: [facility] Surgery Visit Reporton 04-07 Surgery Visit Report [facility] [address] [place] [address] OFFICE VISIT Date of Service: 04/07/24 MR#: [id number] Acct: [id number] Name: DIANA HAND Rep #: [id number] : 1990 Provider: Dr. Javier avila MD Age/Sex: 33/F Location: [facility] Status: Signed Intake Vital Signs 03/23/24 14:42 Height 5 ft 7 in Weight: 155 lb BMI 24.3 BP 117/84 H Blood Pressure Location Rt brachial Position Sitting Respiration 18 Pulse 64 Pulse Source Monitor Temp 98.2 F Temp Source Temporal Pulse Oximetry (%) 99 Oxygen Delivery Method room air Intake Visit Reasons: F/U Excisional breast biopsy x2 Chief Complaint: F/U excisional breast biopsy x2 Is patient in pain?: No Allergies No Known Allergies Allergy (Verified 04/07/24 14:20) Medications ???Medication ???Instructions ???Recorded ???Confirmed ???Type NK 04/07/24 04/07/24 History Subjective Details: Patient is a 33-year-old female who presents for a wound check visit following an in-office excisional breast biopsy x 2 of the right breast. She presents today stating that she is overall much better. She denies any pain. She states that there is some hardness still in the upper excision site. She denies any drainage. She confirms that she was using heat locally for a couple of weeks following our visit but is doing so no longer. Below is recapitulated from patient's follow-up visit for ease review: Patient is a 33-year-old female who presents 2 days following an in-office excisional breast biopsy x 2 from the right breast. She had notified the office yesterday of concern that there is some discoloration of the biopsy site as well as some new firmness and discomfort. Follow-up phone call was made in patient had stated things were relatively stable but she was concerned about returning to work duties with her symptoms. Therefore she was advised to present for clinic evaluation. She presents today's visit with her . She shares today that she is having less discomfort. She believes the firmness is overall stable. She had noted some warmth from the biopsy site but this seems to be shrinking in size. She confirms compliance was recommendation to regularly ice. She confesses that she is afraid she overdid it and describes moving things during an extensive cleaning of her house. Objective Details: Constitutional: Pleasant, no acute distress Breast: Ecchymotic changes of the right breast with spreading purple in line towards the medial aspect of the right breast. There is some yellowing greenish discoloration of the skin around the incision sites which remain initially covered with Steri-Strips. The Steri-Strips are removed and the incision lines remain well-approximated and well-healing. There is mild induration and firmness when palpating about the incision line of the more superior biopsy site. Coding Level of Care Code Off vis,est,level 3 Diagnoses Lump of right breast N63.10 Breast hematoma after procedure [facility] Medical History (Updated 04/07/24 @ 14:[address] Javier Altamirano MD) Wears glasses Wears contact lenses History of edema Former smoker PONV (postoperative nausea and vomiting) Anxiety Varicose veins of both lower extremities Left breast lump Surgical History (Updated 03/25/24 @ 10:06 by Chantel Sharp) S/P breast biopsy, right [place] teeth extracted H/O vein stripping H/O lumpectomy Family History Father Hypertension Grandmother Colon cancer, Onset Age: 70 Mother Colon cancer, Onset Age: 62 Grandfather Colon cancer Cancer Social History adopted: No household members: spouse and children housing: house number of children: 0 current occupational status: employed current occupation: [employer] pets and animals: Yes Smoking Status: Former smoker Electronic Cigarette Use: not used second hand exposure: No alcohol intake: current alcohol intake frequency: a few times a week substance use type: does not use caffeine: Yes what type of physical activity do you participate in: walking seatbelt use: always do you feel safe at home: Yes additional social history: - Jyle ([employer]) Assessment and Plan (No Qualifiers) Assessment and Plan (1) Lump of right breast: Status: Acute Comment: Now status post excisional breast biopsy x 2. Pathology returned consistent with fibroadenomas at both locations. Pathology did note the inability to fully exclude a phyllodes tumor for the largest fibroadenoma. Patient was counseled about these biopsy results and I have recommended simply close surveillance through clinical breast exams. Patient provided a copy of p (more content not included)... Normal [facility] Surgery Visit Reporton 03-25 Surgery Visit Report [facility] [address] [place] [address] OFFICE VISIT Date of Service: 03/25/24 MR#: [id number] Acct: [id number] Name: DIANA HAND Rep #: [id number] : 1990 Provider: Dr. 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 She had notified the office yesterday of concern that there is some discoloration of the biopsy site as well as some new firmness and discomfort. Follow-up phone call was made in patient had stated things were relatively stable but she was concerned about returning to work duties with her symptoms. Therefore she was advised to present for clinic evaluation. She presents today's visit with her . She shares today that she is having less discomfort. She believes the firmness is overall stable. She had noted some warmth from the biopsy site but this seems to be shrinking in size. She confirms compliance was recommendation to regularly ice. She confesses that she is afraid she overdid it and describes moving things during an extensive cleaning of her house. Objective Details: Constitutional: No acute distress, cooperative Breast: Significant ecchymotic changes across at least half the surface of the right breast which seem to be focused upon the patient's upper biopsy site where there is firmness deep to her incision line. Steri-Strips remain intact after bandages are discontinued at both sites. There is no drainage from the sites. There is no warmth. Patient has mild tenderness with palpation. Ultrasound is applied to the breast and there is evidence of a rather tense surgical cavity measuring approximately 3-1/2 cm in diameter with a homogenous hypoechoic character consistent with blood. Coding Level of Care Code Attention Eli Diagnoses Breast hematoma after procedure [facility] Medical History (Updated 03/25/24 @ 13:[address] Javier Altamirano MD) Wears glasses Wears contact lenses History of edema Former smoker PONV (postoperative nausea and vomiting) Anxiety Varicose veins of both lower extremities Left breast lump Surgical History (Updated 03/25/24 @ 10:06 by Chantel Sharp) S/P breast biopsy, right [place] teeth extracted H/O vein stripping H/O lumpectomy Family History Father Hypertension Grandmother Colon cancer, Onset Age: 70 Mother Colon cancer, Onset Age: 62 Grandfather Colon cancer Cancer Social History adopted: No household members: spouse and children housing: house number of children: 0 current occupational status: employed current occupation: [employer] pets and animals: Yes Smoking Status: Former smoker Electronic Cigarette Use: not used second hand exposure: No alcohol intake: current alcohol intake frequency: a few times a week substance use type: does not use caffeine: Yes what type of physical activity do you participate in: walking seatbelt use: always do you feel safe at home: Yes additional social history: - Jyle ([employer]) Assessment and Plan (No Qualifiers) Assessment and Plan (1) Breast hematoma after procedure: Status: Acute Comment: Patient is a 33-year-old female 48 hours status post excisional breast biopsy x 2 who presents with signs and symptoms of a right breast hematoma. While there was some minor bleeding during her procedure she was hemostatic at the procedure's conclusion. She confesses to potentially overdoing it and the day following her procedure and I suspect this led to some post procedure bleeding from an area where we had to perform a suture ligature during her procedure. At this point patient is confirming there is less tenderness and the area appears to have failed the cavity to containment and begun tamponade itself. I do not have concerns that this will continue to expand as it would seem (more content not included)... Normal [facility] Surgery Specimen Level Kevyn 03-23-2024 Surgery Specimen Level IV Patient Age/Sex Location Account Attending Physician DIANA HAND 33/F LABSPEC [id number] Dr. Javier Altamirano MD Specimen: [id number] Received: 03/24/24 Status: YONNY Gee Num: [id number] Spec Type: BREAST BX Subm Dr: Dr. Javier Altamirano MD HEADER OPERATION: Excisional breast biopsy PRE-OP DIAGNOSIS: Left breast masses TISSUE SUBMITTED: A- Right breast, 9o'clock - short suture margin/ long suture lateral, B- Right breast 11o'clock - short suture superior / long suture lateral Ischemic Time: 1 minute Fixation Time: 28 hours MICROSCOPIC DIAGNOSIS A. 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 B. Right breast lesion at 11o'clock, lumpectomy: Fibroadenoma. See Comment. AM. 03/30/2024 COMMENT B. Focal features of benign phyllodes tumor cannot be ruled out. Clinical correlation is suggested. Case has been reviewed in consultation with Dr. Pompa who concurs with the above diagnosis. IDC:SJ MICROSCOPIC DESCRIPTION Slides are reviewed. GROSS DESCRIPTION A. Received in fixative is one container labeled with the patient's name and designated Right breast - 9o'clock. The specimen consists of a piece of youngblood-yellow fibroadipose tissue measuring 2.0 x 2.5 x 1.0cm. The specimen is oriented as follows: short suture- superior, long suture- lateral. A few white sutures are also noted. The specimen orientation presumed to be by the black suture. The specimen is inked as follows: anterior - yellow, posterior - black, superior - blue, inferior - green, medial - red and lateral - orange. This piece is serially sectioned. Also present in the container is a nodular piece of youngblood soft tissue measuring 2.0 x 1.5 x 1.2cm. Sections of this piece reveal youngblood solid cut surfaces. The entire specimen is submitted in six cassettes as follows: 1-3- oriented piece of fibroadipose tissue, 4-6- nodular piece of tissue. B. Received in fixative is one container labeled with the patient's name and designated Right breast - 11o'clock. The specimen consists of a piece of fibroadipose tissue measuring 4.0 x 3.2 x 1.5cm. The specimen is oriented as follows: short suture- superior, Patient Age/Sex Location Account Attending Physician DIANA HAND 33/F LABSPEC [id number] Dr. Javier Altamirano MD long suture- lateral. The specimen is inked as follows: anterior - yellow, posterior - black, superior - blue, inferior - green, medial - red and lateral - orange. Sections reveal youngblood solid nodule measuring 3.5 x 1.5 x 1.5cm. This nodule is present at the lateral, superior and anterior margin. The entire specimen is submitted in ten cassettes from lateral to medial margins. Cassette 1 contains the most lateral portion of the specimen, cassette 10 contains the medial portion of the specimen. 03/24/2024 TC:1 CPT:09818u1 ADDENDUM Addendum 1 Entered: 04/06/24-9039 SOLID TUMOR IMMUNOHISTOCHEMICAL ANALYSIS REPORT FROM [facility] INTERPRETATION: Fibroepithelial lesion, favor fibroadenoma, focally extends to the inked margin (blue). REULTS: ANTIBODY CLONE DESCRIPTION RESULTS P63 4A4 Nuclear pilot teacher factor, basal Myoepithelial cells - positive And myoepithelial cells E-Cadherin 36 Epithelial cells, ductal mammary cells, Pronormoblasts Positive CK5/6 D5/16 B4 Squamous and mesothelial cells Normal staining pattern ER SP-1 Estrogen receptor Positive Please see complete report in e-chart or EMR Addendum Signed (signature on file) Dr. Rodolfo Bui DO 04/07/24 1004 Patient Age/Sex Location Account Attending Physician DIANA HAND 33/F LABSPEC [id number] Dr. Javier Altamirano MD Signed (signature on file) Dr. Rodolfo Bui DO 03/30/24 1221 ----- (more content not included)... Normal [facility] Comment on above: Performed By: #### P SUIV #### [facility] Laboratory [address] [place], [place], [address] Surgery Visit Reporton 03-23 Surgery Visit Report [facility] [address] [place], [place] [address] [place] [address] OFFICE VISIT Date of Service: 03/23/24 MR#: [id number] Acct: [id number] Name: DIANA HAND Rep #: [id number] : 1990 Provider: Dr. Javier avila MD Age/Sex: 33/F Location: [facility] Status: Signed Intake Vital Signs 03/06/24 14:41 03/23/24 14:42 Height 5 ft 7 in 5 ft 7 in Weight: 155 lb BMI 24.3 BP 117/84 H Blood Pressure Location Rt brachial Position Sitting Respiration 18 Pulse 64 Pulse Source Monitor Temp 98.2 F Temp Source Temporal Pulse Oximetry (%) 99 Oxygen Delivery Method room air Intake Visit Reasons: BIRADS 4 Chief Complaint: BIRADS 4 Is patient in pain?: No Allergies No Known Allergies Allergy (Verified 03/23/24 14:42) Medications ???Medication ???Instructions ???Recorded ???Confirmed ???Type NK 03/23/24 03/23/24 History PFSH Medical History Wears glasses Wears contact lenses History of edema Former smoker PONV (postoperative nausea and vomiting) Anxiety Varicose veins of both lower extremities Left breast lump Surgical History [place] teeth extracted H/O vein stripping H/O lumpectomy Family History Father Hypertension Grandmother Colon cancer, Onset Age: 70 Mother Colon cancer, Onset Age: 62 Grandfather Colon cancer Cancer Social History adopted: No household members: spouse and children housing: house number of children: 0 current occupational status: employed current occupation: [employer] pets and animals: Yes Smoking Status: Former smoker Electronic Cigarette Use: not used second hand exposure: No alcohol intake: current alcohol intake frequency: a few times a week substance use type: does not use caffeine: Yes what type of physical activity do you participate in: walking seatbelt use: always do you feel safe at home: Yes additional social history: - Becky ([employer]) HPI HPI HPI: Patient is a 33-year-old female who presents for palpable right breast mass. They are referred from [facility]. Based on sonographic imaging criteria this was given a BI-RADS 4 suspicious. The mass was first found by patient rather recently. She states that she was getting out of the shower when she felt the area and decided to present for further evaluation that led to mammography and ultrasound imaging. Patient has a prior history of breast pathology with fibroadenomas x 2 she estimates that the first excision occurred in or about 2007 or 2008 and was followed shortly thereafter by another area of the left breast. She notes that the second area ultimately required excisional breast biopsy but started with a core needle breast biopsy. She notes some associated tenderness from the area with her cycles but denies any nipple discharge She underwent menarche at the age of 10-12. She has had 1 pregnancies and 1 live births. Breast- feeding was used briefly for a period of 6 months. Patient has no first-degree relatives with breast cancer. The patient has no history of hormone replacement therapy. There is no history of trauma/infection to the affected breast. ROS General General: Yes weight change and fatigue; No appetite, colon cancer, breast cancer or weakness HEENT HEENT: No difficulty swallowing, eye injury, eye surgery, swollen glands or hoarseness Endo Endocrine: No thyroid disease, diabetes mellitus, thyroid cancer, Hair loss, heat intolerance or cold intolerance Skin Skin: No rash or changing moles Breast Breast: Yes right breast lump, abnormal mammogram and abnormal US; No left breast lump, nipple discharge, breast pain or breast enlargement Musc Musculoskeletal: No back problems, arthritis, rheumatoid arthritis, gout or joint pain Cardio Cardiovascular: No murmur, pacemaker, heart disease, atrial fibrillation, high blood pressure, heart attack, heart stent, palpitations, shortness of breat with exertion or chest pain Psych Psychiatric: No depression, anxiety or hearing voices Resp Respiratory: Yes shortness of breath, No sleep apnea, No cough, No COPD, No asthma, No emphysema and No wheezing Gastro Gastrointestinal: No abdominal pain, No nausea or vomiting, No diarrhea, No constipation, No blood in stool, No acid reflux, Yes hemorrhoids, No ulcers, No gallbladder problem and No black,tarry stools Kashif Hematologic: No blood thinners, No blood disorders, No bleeding, No anemia and No blood clots Neuro Neurologic: No system reviewed and no additional complaints, except as documented, No as per HPI, N (more content not included)... Normal [facility] Breast Limited Unilateralon 03-18-2024 Breast Limited Unilateral [facility] Services [address] [place] [address] Breast Limited Unilateral MR#: [id number] Acct: [id number] Name: DIANA HAND Rep #: [id number] : 1990 F 33 From: Phill catherine MD PCP: MAXIMILIAN Meeks Status: [facility] Study: Breast Limited Unilateral Date of Exam: Exam# [id number] Ordering Dr: Cami Modi [id number] STUDY: ULTRASOUND BREAST - RIGHT REASON FOR EXAM: Female, 33 years old. Palpable lump in the right breast. TECHNIQUE: Axial and longitudinal images of the RIGHT breast were performed with a high resolution ultrasound transducer. # OF IMAGES: 25 COMPARISON: Comparison is made with prior mammogram dated March 18, 2024. FINDINGS: RIGHT Breast: The upper lateral aspect of the right breast was examined with ultrasound. There is a 2.4 cm x 2.2 cm x 1.1 cm well-defined hypoechoic solid nodule at the 11:00 position of the breast at 2 cm from the nipple. A similar appearing nodule measuring 1.9 cm x 0.7 cm x 1.5 cm is seen at the 9:00 position the breast at 5 cm from the nipple. These most likely represent fibroadenomas. Biopsy recommended. US/Breast Limited Unilateral IMPRESSION: 2 hypoechoic well-defined nodular density seen in the right breast as described. Biopsy recommended. ASSESSMENT CATEGORY: BIRADS Category 4: Suspicious - Biopsy Should Be Considered. A letter regarding these results will be sent to the patient by the facility within 30 days. Electronically Signed: Phill Hagne MD at 10:21 [facility] , CC: MAXIMILIAN Zavala; Dr. Cami Modi MD Senior Enlisted Advisor: Signed Normal [facility] DIAG MAMM W/CAD, [place] DIAG MAMM W/CAD, [facility] Imaging Services [address] [place] [address] [id number] DIAG MAMM W/CAD, BILAT MR#: [id number] Acct: [id number] Name: DIANA HAND Rep #: [id number] : 1990 F 33 From: Phill catherine MD PCP: Sheryl Zavala NP-Nena Status: [facility] Study: DIAG MAMM W/CAD, BILAT Date of Exam: 03/18/24 Exam# [id number] Ordering Dr: Cami Modi [id number] MAMMOGRAPHY - BILATERAL DIAGNOSTIC REASON FOR EXAM: Female, 33 years old. One month history of a right breast lump. Prior left excisional breast biopsy. PERTINENT HISTORY: Grandmother with breast cancer. TECHNIQUE: Digital bilateral breast asim (3D mammographic acquisition) in the CC and MLO projections. 2-D mediolateral oblique (MLO) and craniocaudad (CC) views of both breasts were obtained. CAD: Full Field Digital Mammography with Computer Added Detection was performed. COMPARISON: None. Baseline examination. FINDINGS: Breast Composition: The breasts are extremely dense, which lowers the sensitivity of mammography. There is a 2.1 cm x 1.8 cm well-defined nodule in the anterior upper aspect of the right breast. Adjacent to this, there is a similar-appearing well-defined nodular density measuring 1 cm x 0.8 cm. There is also evidence of a superficial well-defined nodule in the lateral anterior aspect of the breast on the right side measuring 1 cm x 1 cm. Correlation with ultrasound is recommended. No other significant abnormalities are identified. BI/DIAG MAMM W/CAD, BILAT IMPRESSION: Left breast nodules as described. Correlation with ultrasound recommended. ASSESSMENT CATEGORY: BIRADS Category 0: Incomplete. Need additional imaging evaluation. A letter regarding these results will be sent to the patient by the facility within 30 days. Approximately 10% of breast cancers are not detected by mammography. A normal mammogram should not delay biopsy of a clinically suspicious abnormality. Electronically Signed: Phill Hagen MD at 15:23 EST , CC: MAXIMILIAN Zavala; Dr. Cami Modi MD Senior Enlisted Advisor: Signed Normal [facility] Absolute lymphocyte countOrd ered By: HEALTH ASSESSMENT on 01-01-2023 Lymphocytes Auto (Unsp spec) [#/Vol] 1.85 10*3/uL 0.83-4.51 [facility] Absolute reticulocyte countO rdered By: HEALTH ASSESSMENT on 01-01-2023 Reticulocytes (Bld) [#/Vol] 0.00 10*3/uL 0-5 [facility] Basophil percentageOrdered B y: HEALTH ASSESSMENT on 01-01-2023 Basophil percentage 2.9 mg/dL 2.5-4.9 [facility] Bilirubin [Mass/Vol] 0.50 mg/dL 0.20-1.00 [facility] Comment on above: For patients on eltr ombopag therapy, use of Dimension [place] TBIL is not recommended. Chloride [Moles/Vol] 103 mmol/L 98-107 [facility] Cholesterol [Mass/Vol] 192 mg/dL <200 [facility] Comment on above: <200 mg/dL Desirable 200-240 mg/dL Borderline >240 mg/dL High Risk Glucose [Mass/Vol] 84 mg/dL 74-106 [facility] LDH [Catalytic activity/Vol] 175 U/L 84-246 [facility] Neutrophils (Bld) [#/Vol] 3.2 10*3/uL 2.0-7.7 [facility] Potassium [Moles/Vol] 3.8 mmol/L 3.5-5.1 [facility] Protein [Mass/Vol] 6.9 g/dL 6.4-8.2 [facility] Sodium [Moles/Vol] 138 mmol/L 136-145 [facility] Triglyceride [Mass/Vol] 70 mg/dL <199 [facility] Comment on above: The drugs N-Acetylcy steine and Metamizole may falsely depress this assay.Serum Triglycerides Reference Interval Normal <150 mg/dL Borderline high 150 - 199 mg/dL High 200 - 499 mg/dL Very High > or = 500 mg/dL WBC (Bld) [#/Vol] 5.7 10*3/uL 4.4-11.0 [facility] Blood erythrocytes count (nu mber/volume)Ordered By: HEALTH ASSESSMENT on 01-01-2023 RBC (Bld) [#/Vol] 4.10 10*6/uL 4.2-5.4 [facility] Blood hemoglobin measurement (mass/volume)Ordered By: HEALTH ASSESSMENT on 01-01-2023 Hemoglobin (Bld) [Mass/Vol] 12.9 g/dL 12.0-15.0 [facility] Blood platelet mean volumeOr dered By: HEALTH ASSESSMENT on 01-01-2023 Platelet mean volume (Bld) [Entitic vol] 9.7 fL 6.2-12.0 [facility] Determination of erythrocyte mean corpuscular volume (MCV)Ordered By: HEALTH ASSESSMENT on 01-01-2023 MCV (RBC) [Entitic vol] 92.4 fL 81-99 [facility] Direct bilirubinOrdered By: HEALTH ASSESSMENT on 01-01-2023 Bilirubin.direct [Mass/Vol] 0.16 mg/dL 0.00-0.30 [facility] Hematocrit Auto (Bld) [Volum e fraction]Ordered By: HEALTH ASSESSMENT on 01-01-2023 Hematocrit (Bld) [Volume fraction] 37.9 % 37-47 [facility] Laboratory - Chemistry and C hemistry - challengeOrdered By: HEALTH ASSESSMENT on 01-01-2023 ALP [Catalytic activity/Vol] 52 U/L 45-117 [facility] ALT [Catalytic activity/Vol] 24 U/L 13-56 [facility] Cholesterol.total/Chol esterol in HDL [Mass ratio] 2.00 {ratio} [facility] CO2 [Moles/Vol] 28.0 mmol/L 21.0-32.0 [facility] Globulin (S) [Mass/Vol] 3.4 g/dL 2.2-4.2 [facility] Urea nitrogen/Creatinine [Mass ratio] 15.1 mg/mg 10-20 [facility] Laboratory - Hematology and Cell countsOrdered By: HEALTH ASSESSMENT on 01-01-2023 Erythrocyte distribution width (RBC) [Entitic vol] 43.5 fL 35.1-43.9 [facility] Erythrocyte distribution width (RBC) [Ratio] 12.7 % 11.6-14.6 [facility] MCH (RBC) [Entitic mass] 31.5 pg 27.0-32.0 [facility] Nucleated RBC/100 WBC (Bld) [Ratio] 0 % 0-5 [facility] MCHC Auto (RBC) [Mass/Vol]Or dered By: HEALTH ASSESSMENT on 01-01-2023 MCHC (RBC) [Mass/Vol] 34.0 g/dL 32-36 [facility] No Panel InformationOrdered By: HEALTH ASSESSMENT on 01-01-2023 Estimated GFR (MDRD) Amer 97 mL/min >60 [facility] Comment on above: GFR Calc Estimated GFR (MDRD) Non-Af Amer 80 mL/min >60 [facility] Comment on above: Non- GFR Calc Platelets bldOrdered By: [facility] ASSESSMENT on 01-01-2023 Platelets (Bld) [#/Vol] 204 10*3/uL 150-450 [facility] Segmented neutrophils/100 WB C Auto (Bld)Ordered By: HEALTH ASSESSMENT on 01-01-2023 Segmented neutrophils/100 WBC (Bld) 55.2 % 47-70 [facility] Serum or plasma albumin dennys urement (mass/volume)Ordered By: HEALTH ASSESSMENT on 01-01-2023 Albumin [Mass/Vol] 3.5 g/dL 3.2-5.0 [facility] Serum or plasma albumin/glob ulin mass ratioOrdered By: HEALTH ASSESSMENT on 01-01-2023 Albumin/Globulin [Mass ratio] 1.0 {ratio} 0.9-2.4 [facility] Serum or plasma calcium dennys urement (mass/volume)Ordered By: HEALTH ASSESSMENT on 01-01-2023 Calcium [Mass/Vol] 8.8 mg/dL 8.5-10.1 [facility] Serum or plasma cholesterol in HDL measurement (mass/volume)Ordered By: HEALTH ASSESSMENT on 01-01-2023 Cholesterol in HDL [Mass/Vol] 96 mg/dL >40 [facility] Comment on above: The drugs N-Acetylcy steine and Metamizole may falsely depress this assay. Reference Range HDL <40 mg/dL Low HDL Cholesterol HDL >or= 60 mg/dL High HDL Cholesterol Serum or plasma cholesterol in VLDL measurement (mass/volume)Ordered By: HEALTH ASSESSMENT on 01-01-2023 Cholesterol in VLDL [Mass/Vol] 14 mg/dL 5-40 [facility] Serum or plasma creatinine m easurement (mass/volume)Ordered By: HEALTH ASSESSMENT on 01-01-2023 Creatinine [Mass/Vol] 0.86 mg/dL 0.55-1.02 [facility] Comment on above: The validity of the calculated GFR & GFRAA in patients over 70 years has not been determined. Clinical correlation is essential. Serum or plasma low density lipoprotein (LDL) cholesterol measurement (mass/volume)Ordered By: HEALTH ASSESSMENT on 01-01-2023 Cholesterol in LDL [Mass/Vol] 82 mg/dL 0-130 [facility] Serum or plasma urea nitroge n measurement (mass/volume)Ordered By: HEALTH ASSESSMENT on 01-01-2023 Urea nitrogen [Mass/Vol] 13 mg/dL 7-18 [facility] Serum or plasma uric acid me asurement (mass/volume)Ordered By: HEALTH ASSESSMENT on 01-01-2023 Urate [Mass/Vol] 3.3 mg/dL 2.6-6.0 [facility] Comment on above: The drugs N-Acetylcy steine and Metamizole may falsely depress this assay. Thin prep Papanicolaou smear with manual screeningOrdered By: HEALTH ASSESSMENT on 01-01-2023 Thin prep Papanicolaou smear with manual screening 19 U/L 15-37 [facility] Thin prep Papanicolaou smear with manual screening 7 5-15 [facility] Absolute lymphocyte counton 01-01-2022 Lymphocytes Auto (Unsp spec) [#/Vol] 1.50 10*3/uL 0.83-4.51 [facility] Work Phone: Absolute reticulocyte counto n 01-01-2022 Reticulocytes (Bld) [#/Vol] 0.00 10*3/uL 0-5 [facility] Work Phone: Basophil percentageon 2021 Basophil percentage 3.1 mg/dL 2.5-4.9 [facility] Work Phone: [phone] Bilirubin [Mass/Vol] 0.90 mg/dL 0.20-1.00 [facility] Work Phone: Comment on above: For patients on eltr ombopag therapy, use of Dimension [place] TBIL is not recommended. Chloride [Moles/Vol] 107 mmol/L 98-107 [facility] Work Phone: Cholesterol [Mass/Vol] 189 mg/dL <200 [facility] Work Phone: Comment on above: <200 mg/dL Desirable 200-240 mg/dL Borderline >240 mg/dL High Risk Glucose [Mass/Vol] 90 mg/dL 74-106 [facility] Work Phone: Neutrophils (Bld) [#/Vol] 4.0 10*3/uL 2.0-7.7 [facility] Work Phone: [phone] Potassium [Moles/Vol] 4.1 mmol/L 3.5-5.1 [facility] Work Phone: [phone] Protein [Mass/Vol] 7.2 g/dL 6.4-8.2 [facility] Work Phone: Sodium [Moles/Vol] 138 mmol/L 136-145 [facility] Work Phone: [phone] Triglyceride [Mass/Vol] 45 mg/dL <199 [facility] Work Phone: [phone] Comment on above: The drugs N-Acetylcy steine and Metamizole may falsely depress this assay.Serum Triglycerides Reference Interval Normal <150 mg/dL Borderline high 150 - 199 mg/dL High 200 - 499 mg/dL Very High > or = 500 mg/dL WBC (Bld) [#/Vol] 6.2 10*3/uL 4.4-11.0 [facility] Work Phone: Blood erythrocytes count (nu mber/volume)on 01-01-2022 RBC (Bld) [#/Vol] 4.21 10*6/uL 4.2-5.4 [facility] Work Phone: [phone] Blood hemoglobin measurement (mass/volume)on 01-01-2022 Hemoglobin (Bld) [Mass/Vol] 12.9 g/dL 12.0-15.0 [facility] Work Phone: [phone] Blood platelet mean volumeon 01-01-2022 Platelet mean volume (Bld) [Entitic vol] 10.0 fL 6.2-12.0 [facility] Work Phone: [phone] Determination of erythrocyte mean corpuscular volume (MCV)on 01-01-2022 MCV (RBC) [Entitic vol] 91.7 fL 81-99 [facility] Work Phone: [phone] Direct bilirubinon Bilirubin.direct [Mass/Vol] 0.21 mg/dL 0.00-0.30 [facility] Work Phone: [phone] Hematocrit Auto (Bld) [Volum e fraction]on 01-01-2022 Hematocrit (Bld) [Volume fraction] 38.6 % 37-47 [facility] Work Phone: [phone] Laboratory - Chemistry and C hemistry - challengeon 01-01-2022 ALP [Catalytic activity/Vol] 41 U/L 45-117 [facility] Work Phone: [phone] ALT [Catalytic activity/Vol] 26 U/L 13-56 [facility] Work Phone: [phone] Cholesterol.total/Chol esterol in HDL [Mass ratio] 2.00 {ratio} [facility] Work Phone: [phone] CO2 [Moles/Vol] 27.0 mmol/L 21.0-32.0 [facility] Work Phone: [phone] Globulin (S) [Mass/Vol] 3.4 g/dL 2.2-4.2 [facility] Work Phone: [phone] Urea nitrogen/Creatinine [Mass ratio] 14.8 mg/mg 10-20 [facility] Work Phone: [phone] Laboratory - Hematology and Cell countson 01-01-2022 Erythrocyte distribution width (RBC) [Entitic vol] 44.2 fL 35.1-43.9 [facility] Work Phone: [phone] Erythrocyte distribution width (RBC) [Ratio] 13.2 % 11.6-14.6 [facility] Work Phone: [phone] MCH (RBC) [Entitic mass] 30.6 pg 27.0-32.0 [facility] Work Phone: [phone] Nucleated RBC/100 WBC (Bld) [Ratio] 0 % 0-5 [facility] Work Phone: [phone] MCHC Auto (RBC) [Mass/Vol]on 01-01-2022 MCHC (RBC) [Mass/Vol] 33.4 g/dL 32-36 [facility] Work Phone: No Panel Informationon 01-01 Estimated GFR (MDRD) Amer 96 mL/min >60 [facility] Work Phone: Comment on above: GFR Calc Estimated GFR (MDRD) Non-Af Amer 79 mL/min >60 [facility] Work Phone: [phone] Comment on above: Non- GFR Calc Thyroid Stimulating Hormone (TSH) 0.88 uIU/mL 0.358-3.74 [facility] Work Phone: Platelets bldon 01-01-2022 Platelets (Bld) [#/Vol] 215 10*3/uL 150-450 [facility] Work Phone: Segmented neutrophils/100 WB C Auto (Bld)on 01-01-2022 Segmented neutrophils/100 WBC (Bld) 65.0 % 47-70 [facility] Work Phone: [phone] Serum or plasma albumin dennys urement (mass/volume)on 01-01-2022 Albumin [Mass/Vol] 3.8 g/dL 3.2-5.0 [facility] Work Phone: Serum or plasma albumin/glob ulin mass ratioon 01-01-2022 Albumin/Globulin [Mass ratio] 1.1 {ratio} 0.9-2.4 [facility] Work Phone: Serum or plasma calcium dennys urement (mass/volume)on 01-01-2022 Calcium [Mass/Vol] 9.0 mg/dL 8.5-10.1 [facility] Work Phone: [phone] Serum or plasma cholesterol in HDL measurement (mass/volume)on 01-01-2022 Cholesterol in HDL [Mass/Vol] 94 mg/dL >40 [facility] Work Phone: Comment on above: The drugs N-Acetylcy steine and Metamizole may falsely depress this assay. Reference Range HDL <40 mg/dL Low HDL Cholesterol HDL >or= 60 mg/dL High HDL Cholesterol Serum or plasma cholesterol in VLDL measurement (mass/volume)on 01-01-2022 Cholesterol in VLDL [Mass/Vol] 9 mg/dL 5-40 [facility] Work Phone: [phone] Serum or plasma creatinine m easurement (mass/volume)on 01-01-2022 Creatinine [Mass/Vol] 0.88 mg/dL 0.55-1.02 [facility] Work Phone: Comment on above: The validity of the calculated GFR & GFRAA in patients over 70 years has not been determined. Clinical correlation is essential. Serum or plasma low density lipoprotein (LDL) cholesterol measurement (mass/volume)on 01-01-2022 Cholesterol in LDL [Mass/Vol] 86 mg/dL 0-130 [facility] Work Phone: [phone] Serum or plasma urea nitroge n measurement (mass/volume)on 01-01-2022 Urea nitrogen [Mass/Vol] 13 mg/dL 7-18 [facility] Work Phone: [phone] Serum or plasma uric acid me asurement (mass/volume)on 01-01-2022 Urate [Mass/Vol] 3.3 mg/dL 2.6-6.0 [facility] Work Phone: Comment on above: The drugs N-Acetylcy steine and Metamizole may falsely depress this assay. Thin prep Papanicolaou smear with manual screeningon 01-01-2022 Thin prep Papanicolaou smear with manual screening 18 U/L 15-37 [facility] Work Phone: Thin prep Papanicolaou smear with manual screening 4 5-15 [facility] Work Phone: Thin prep Papanicolaou smear with manual screening 173 U/L 84-246 [facility] Work Phone: Vital Signs Date Time Vital Sign Value Performing Clinician Sandy altman 01-26-2025 09:59-0400 Body height 170.18 cm Sheryl Zavala PSYCHIATRIC AIDE-C Work Phone: [facility] 01-26-2025 09:59-0400 Body mass index (BMI) [Ratio] 24 kg/m2 Sheryl Zavala PSYCHIATRIC AIDE-C Work Phone: [facility] 01-26-2025 09:59-0400 Body temperature 96.6 [degF] Sheryl Zavala PSYCHIATRIC AIDE-C Work Phone: [facility] 01-26-2025 09:59-0400 Body weight 69.51 kg Sheryl Zavala PSYCHIATRIC AIDE-C Work Phone: [facility] 01-26-2025 09:59-0400 Diastolic blood pressure 56 mm[Hg] Sheryl Zavala PSYCHIATRIC AIDE-C Work Phone: [facility] 01-26-2025 09:59-0400 Heart rate 60 /min Sheryl Zavala PSYCHIATRIC AIDE-C Work Phone: [facility] 01-26-2025 09:59-0400 Respiratory rate 16 /min Sheryl Zavala PSYCHIATRIC AIDE-C Work Phone: [facility] 01-26-2025 09:59-0400 SaO2% (BldA) [Mass fraction] 100 % Sheryl Zavala PSYCHIATRIC AIDE-C Work Phone: [facility] 01-26-2025 09:59-0400 Systolic blood pressure 102 mm[Hg] Sheryl Zavala PSYCHIATRIC AIDE-C Work Phone: [facility] 02-12-2023 10:09-0400 Body temperature 98.2 [degF] PSYCHIATRIC AIDE-C Merced Dawn PSYCHIATRIC AIDE Work Phone: [facility] 02-12-2023 10:09-0400 Body weight 74.84 kg PSYCHIATRIC AIDE-C Merced Dawn PSYCHIATRIC AIDE Work Phone: [facility] 02-12-2023 10:09-0400 Diastolic blood pressure 78 mm[Hg] PSYCHIATRIC AIDE-C Merced Dawn PSYCHIATRIC AIDE Work Phone: [facility] 02-12-2023 10:09-0400 Heart rate 84 /min PSYCHIATRIC AIDE-C Merced Dawn PSYCHIATRIC AIDE Work Phone: [facility] 02-12-2023 10:09-0400 Respiratory rate 16 /min PSYCHIATRIC AIDE-C Merced Dawn PSYCHIATRIC AIDE Work Phone: [facility] 02-12-2023 10:09-0400 SaO2% (BldA) [Mass fraction] 97 % PSYCHIATRIC AIDE-C Merced Dawn PSYCHIATRIC AIDE Work Phone: [facility] 02-12-2023 10:09-0400 Systolic blood pressure 120 mm[Hg] PSYCHIATRIC AIDE-C Merced Dawn PSYCHIATRIC AIDE Work Phone: [facility] 01-08-2023 09:57-0400 Body height 170.18 cm PSYCHIATRIC AIDE-C Merced Dawn PSYCHIATRIC AIDE Work Phone: [facility] 01-08-2023 09:57-0400 Body mass index (BMI) [Ratio] 25.8 kg/m2 PSYCHIATRIC AIDE-C Merced Dawn PSYCHIATRIC AIDE Work Phone: [facility] 01-08-2023 09:57-0400 Body temperature 97 [degF] PSYCHIATRIC AIDE-C Merced Dawn PSYCHIATRIC AIDE Work Phone: [facility] 01-08-2023 09:57-0400 Body weight 74.84 kg PSYCHIATRIC AIDE-C Merced Dawn PSYCHIATRIC AIDE Work Phone: [facility] 01-08-2023 09:57-0400 Diastolic blood pressure 64 mm[Hg] PSYCHIATRIC AIDE-C Merced Fander PSYCHIATRIC AIDE Work Phone: [facility] 01-08-2023 09:57-0400 Heart rate 85 /min PSYCHIATRIC AIDE-C Merced Dawn PSYCHIATRIC AIDE Work Phone: [facility] 01-08-2023 09:57-0400 Respiratory rate 16 /min PSYCHIATRIC AIDE-C Merced Dawn PSYCHIATRIC AIDE Work Phone: [facility] 01-08-2023 09:57-0400 SaO2% (BldA) [Mass fraction] 97 % PSYCHIATRIC AIDE-C Merced Fander PSYCHIATRIC AIDE Work Phone: [facility] 01-08-2023 09:57-0400 Systolic blood pressure 110 mm[Hg] PSYCHIATRIC AIDE-C Merced Fander PSYCHIATRIC AIDE Work Phone: [facility] 01-02-2022 10:31-0400 Body height 170.[address] Newton Chan Work Phone: [facility] Work Phone: 01-02-2022 10:31-0400 Body mass index (BMI) [Ratio] 24.7 kg/m2 Dr. Newton Chan Work Phone: [facility] Work Phone: 01-02-2022 10:31-0400 Body temperature 97.2 [degF] Dr. Newton Chan Work Phone: [facility] Work Phone: 01-02-2022 10:31-0400 Body weight 71.[address] Newton Chan Work Phone: [facility] Work Phone: 01-02-2022 10:31-0400 Diastolic blood pressure 74 mm[Hg] Dr. Newton Chan Work Phone: [facility] Work Phone: 01-02-2022 10:31-0400 Heart rate 72 /min Dr. Newton Chan Work Phone: [facility] Work Phone: 01-02-2022 10:31-0400 Respiratory rate 14 /min Dr. Newton Chan Work Phone: [facility] Work Phone: 01-02-2022 10:31-0400 SaO2% (BldA) [Mass fraction] 99 % Dr. Newton Chan Work Phone: [facility] Work Phone: 01-02-2022 10:31-0400 Systolic blood pressure 112 mm[Hg] Dr. Newton Chan Work Phone: [facility] Work Phone: Encounters Encounter Date Encounter Type Care Provider Facility Start: 03-19-2025 ambulatory Cami Zuritai lity:[facility] Start: 03-08-2025 End: 03-08-2025 ambulatory Cami Modi Facility:[facility] Start: 01-26-2025 End: 01-26-[address] Ofelia Carver MD -[facility] Work Phone: Start: 01-26-2025 End: 01-26-2025 ambulatory Sheryl Zavala PSYCHIATRIC AIDE-C Work Phone: -[facility] Start: 05-15-2024 End: 05-15-2024 ambulatory Sheryl Ferullo Facility:[facility] Start: 05-01-2024 End: 05-01-2024 ambulatory Sheryl Ferullo Facility:[facility] Start: 04-22-2024 End: 04-22-2024 ambulatory Sheryl Ferullo Facility:[facility] Start: 04-07-2024 End: 04-07-2024 ambulatory Sheryl Ferullo Facility:[facility] Start: 03-25-2024 End: 03-25-2024 ambulatory Sheryl Ferullo Facility:[facility] Start: 03-23-2024 End: 03-23-2024 ambulatory Sheryl Ferullo Facility:[facility] Start: 03-23-2024 End: 03-23-2024 ambulatory Sheryl Zavala Facility:[facility] Start: 03-18-2024 End: 03-18-2024 ambulatory Cami Modi Facility:[facility] Start: 01-14-2024 Patient encounter status Sheryl Zavala PSYCHIATRIC AIDE-C Work Phone: [facility] Start: 02-22-2023 Non-patient / Non-visit PSYCHIATRIC AIDE-C Daisy Dawn PSYCHIATRIC AIDE Work Phone: [facility] Start: 02-22-2023 End: 02-22-2023 ambulatory PSYCHIATRIC AIDE-C Merced Dawn PSYCHIATRIC AIDE Work Phone: [facility] Work Phone: Start: 02-22-2023 End: 02-22-2023 Patient encounter procedure PSYCHIATRIC AIDE-C Merced Dawn PSYCHIATRIC AIDE Work Phone: [facility] Work Phone: Start: 02-12-2023 End: 02-12-2023 Patient encounter procedure PSYCHIATRIC AIDE-C Merced Dawn PSYCHIATRIC AIDE Work Phone: [facility] Work Phone: Start: 01-08-2023 End: 01-08-2023 Patient encounter procedure PSYCHIATRIC AIDE-C Merced Dawn PSYCHIATRIC AIDE Work Phone: [facility] Work Phone: Start: 01-01-2023 Registered Referred PSYCHIATRIC AIDE-C Merced Dawn PSYCHIATRIC AIDE Work Phone: [facility] Start: 01-02-2022 End: 01-02-[address] Newton Chan Work Phone: [facility] Work Phone: Start: 01-02-2022 End: 01-02-2022 Encounter for general adult medical examination without abnormal findings Dr. Newton Chan Work Phone: [facility] Start: 01-02-2022 End: 01-02-[address] Newton Chan Work Phone: [facility] Start: 01-01-[address] Tyler Chan Work Phone: [facility] Start: 02-23-[address] Newton Chan Work Phone: [facility] Work Phone: Procedures Date Procedure Procedure Detail Performing Clinician H/O: surgery Status post excisional biops y Sheryl Zavala PSYCHIATRIC AIDE-C Work Phone: Plan of Treatment Date Care Activity Detail Author Start: 01-26-2025 Vitamin D, 1,25-dihy droxy measurement [facility] Start: 01-08-2023 Patient referral [facility] Work Phone: Patient referral [facility] Work Phone: Immunizations Immunization Date Immunization Notes Care Provider [facility] 04-19-2022 influenza, injectabl e, quadrivalent, preservative free PSYCHIATRIC AIDE-C Merced Fander PSYCHIATRIC AIDE Work Phone: [facility] 02-28-2021 influenza, injectabl e, quadrivalent, preservative free PSYCHIATRIC AIDE-C Merced Dawn PSYCHIATRIC AIDE Work Phone: [facility] 02-28-2021 influenza, seasonal, injectable Dr. Newton Chan Work Phone: [facility] Work Phone: 02-28-2021 influenza, seasonal, injectable, preservative free Sheryl Zavala PSYCHIATRIC AIDE-C Work Phone: [facility] 06-21-2020 influenza, injectabl e, quadrivalent, preservative free PSYCHIATRIC AIDE-C Merced Dawn PSYCHIATRIC AIDE Work Phone: [facility] 06-21-2020 influenza, seasonal, injectable Dr. Newton Chan Work Phone: [facility] Work Phone: 06-21-2020 influenza, seasonal, injectable, preservative free Sheryl Zavala PSYCHIATRIC AIDE-C Work Phone: [facility] 03-09-2019 influenza, injectabl e, quadrivalent, preservative free PSYCHIATRIC AIDE-C Merced Dawn PSYCHIATRIC AIDE Work Phone: [facility] 03-09-2019 influenza, seasonal, injectable Dr. Newton Chan Work Phone: [facility] Work Phone: 07-23-2018 tetanus toxoid, redu sandee diphtheria toxoid, and acellular pertussis vaccine, adsorbed Dr. Newton Chan Work Phone: [facility] 04-03-2018 influenza, injectabl e, quadrivalent, preservative free PSYCHIATRIC AIDE-C Merced Dawn PSYCHIATRIC AIDE Work Phone: [facility] 04-03-2018 influenza, seasonal, injectable Dr. Newton Chan Work Phone: [facility] Work Phone: 02-27-2017 influenza, injectabl e, quadrivalent, preservative free PSYCHIATRIC AIDE-C Merced Dawn PSYCHIATRIC AIDE Work Phone: [facility] 02-27-2017 influenza, seasonal, injectable Dr. Newotn Chan Work Phone: [facility] Work Phone: 03-02-2016 influenza, injectabl e, quadrivalent, preservative free PSYCHIATRIC AIDE-C Merced Dawn PSYCHIATRIC AIDE Work Phone: [facility] 03-02-2016 influenza, seasonal, injectable Dr. Newton Chan Work Phone: [facility] Work Phone: 02-08-2015 influenza, injectabl e, quadrivalent, preservative free PSYCHIATRIC AIDE-C Merced Dawn PSYCHIATRIC AIDE Work Phone: [facility] 02-08-2015 influenza, seasonal, injectable Dr. Newton Chan Work Phone: [facility] Work Phone: 01-28-2014 influenza, injectabl e, quadrivalent, preservative free PSYCHIATRIC AIDE-C Merced Dwan NP Work Phone: [facility] 01-28-2014 influenza, seasonal, injectable Dr. Newton Chan Work Phone: [facility] Work Phone: 05-14-[address] Newton Chan Work Phone: [facility] Payers Date Payer Category Payer Self-pay [id number] 2024 Unknown [id number] 2013 Unknown [id number] Unknown [id number] 2.16.8 [id number] Unknown [id number] 2.16.8 [id number] Unknown [id number] 2.16.8 [id number] Unknown [id number] 2.16.8 [id number] Unknown [id number] 2.16.8 [id number] Unknown [id number] 2.16.8 [id number] Unknown [id number] 2.16.8 [id number] Unknown [id number] 2.16.8 [id number] Unknown [id number] 2.16.8 [id number] Unknown [id number] 2.16.8 [id number] Unknown [id number] 2.16.8 [id number] Social History Date Type Detail Facility Start: 01-02-2022 End: 02-12-2023 Tobacco smoking status NHIS Unknown if ever smoked [facility] Start: 09-28-2018 None [facility] Start: 1990 Sex Assigned At Female [facility] Start: 01-26-2025 Tobacco smoking stat us CAIS Ex-smoker (finding) [facility] Sex Female [facility] Progress note 01-26-2025 Note Date & Type Note Facility 01-26-2025 Progress note [facility] Evaluation note Note Date & Type Note Facility Evaluation note Diagnosis Onset Date Encounter for preventative alana omalley health care examination chronic [facility] Work Phone: Evaluation note Note Date & Type Note Facility Evaluation note Diagnosis Onset Date COVID-19 vaccination declined noneactive Varicose veins of bilateral lower extremities with pain noneactive Family history of colon cancer noneactive Establishing care with cortney clark, encounter for noneactive Annual physical exam noneact cait Varicose veins of both lower extremities with pain acute [facility] Work Phone: Evaluation note Note Date & Type Note Facility Evaluation note Diagnosis Onset Date Resolution GERD (gastroesophageal reflux disease) acute January 26, 2025 9:49am Screening for depression noneactive January 26, 2025 9:49am Varicose veins of bilateral lower extremities with pain noneactive January 26, 2025 9:49am Family history of colon cancer noneactive January 26, 2025 9:49am Annual physical exam noneactive Jan 9:49am Shortness of breath on exertion noneactive January 26, 2025 9:49am Hearing difficulty noneactive 2024 9:49am Vitamin d deficiency noneactive Jan 9:49am [facility] Work Phone: Progress note Note Date & Type Note Facility Progress note Note Date/Time January 26, 2025 10:32am [facility] [address] [place] [address] [place] [address] OFFICE VISIT Date of Service: 01/26/25 MR#: [id number] Acct: [id number] Name: DIANA HAND Rep #: [id number] : 1990 Provider: Dr. 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 Ofelia Carver MD) Family history of colon cancer in mother Lump of right breast Abnormal ultrasound of breast Hematoma of right breast Wears glasses Wears contact lenses History of edema Former smoker PONV (postoperative nausea and vomiting) Anxiety Varicose veins of both lower extremities Left breast lump Surgical History (Updated 01/26/25 @ 10:[address] Ofelia Carver MD) Status post excisional biopsy S/P breast biopsy, right [place] teeth extracted H/O vein stripping H/O lumpectomy Family History (Updated 01/26/25 @ 10:[address] Ofelia Carver MD) Father Hypertension Grandmother Colon cancer, Onset Age: 70 Mother Colon cancer, Onset Age: 62 Grandfather Colon cancer Cancer Grandfather Esophageal cancer Social History (Updated 01/26/25 @ 10:[address] Ofelia Carver MD) adopted: No household members: spouse and children housing: house number of children: 1 current occupational status: employed current occupation: [employer] pets and animals: Yes Smoking Status: Former smoker quit date: 05/06/09 Electronic Cigarette Use: not used second hand exposure: No alcohol intake: current alcohol intake frequency: a few times a week substance use type: does not use caffeine: Yes what type of physical activity do you participate in: walking seatbelt use: always do you feel safe at home: Yes additional social history: - Becky ([employer]) Questionnaire PQH-9 [facility] Over the last 2 weeks, how often have you been bothered by any of the following problems? 1. Little interest or pleasure in doing things: not at all 2. Feeling down, depressed, or hopeless: not at all 3. Trouble falling or staying asleep, or sleeping too much: not at all 4. Feeling tired or having little energy: not at all 5. Poor appetite or overeating: not at all 6. Feeling bad about yourself - or that you are a failure or have let yourself and your family down: not at all 7. Trouble concentrating on things, such as reading the newspaper or watching television: not at all 8. Moving or speaking so slowly that other people could have noticed? - Or the opposite - being so fidgety or restless that you have been moving around a lot more than usual: not at all 9. Thoughts that you would be better off or of hurting yourself in some way: not at all Total score: 0 If you checked off any problems, how difficult have these problems made it for you to do your work, take care of things at home, or get along with other people?: not difficult at all Source: Developed by Drs. David Cobian, Angie Moura, Michael Garcia and colleagues, with an educational ron from [employer]. LEAH-7 BMS LEAH-7 Feeling nervous, anxious, or on edge: 0 = Not at all Not being able to stop or control worryin = Not at all Worrying too much about different things: 0 = Not at all Trouble relaxin = Not at all Being so restless that it is hard to sit still: 0 = Not at all Becoming easily annoyed or irritable: 0 = Not at all Feeling afraid as if something awful might happen: 0 = Not at all Total LEAH-7 score (0-4 normal; 5-9 mild; 10-14 moderate; 15-21 severe): 0 Source: Developed by Drs. David Cobian, Angie Moura, Michael Garcia and colleagues, with an educational ron from [employer]. HPI HPI Chief Complaint: yearly Details: DIANA HAND, is a 34 F who presents to the office today for a well visit. She will be doing her employee labs and is due for some screening. She has an appointment with OBGYN scheduled for March. She will get her flu shotthrough work and previously declined any COVID vaccines. She doesn't smoke and doesn't take any prescription medications. The patient has a history of GERD. She doesn't currently taking anything for itright now. She had an EGD in November of last year which showed chronic inflammation. She was put on a 14 day course of omeprazole. She states that helped a little, but she does still get symptoms. She reports certain foods seemto flare it up. She has no other questions or concerns at this time. NKDA Medications reviewed: Yes Diana likes to exercises by doing yoga. They watch their diet for sodium, low fat, and low cholesterol most of the time. List of current specialists seen: OBGYN, Dermatology End of life planning discussed including patient's advanced directive wishes: Discussed. Patient doesn't have one in place. I am willing to follow Diana's advanced directives PHQ-2/Depression screen They in the past two weeks denies having felt down, depressed, hopeless or with little interest or pleasure in doing things. Hearing evaluation: Normal ROS Const Constitutional: No body ache, excessive sweating, fatigue, fever(s), frequent falls, headache(s), snoring, weakness, weight change, sleep problems or change in appetite Eyes Eyes: No blurry vision, change in vision, eye pain or Light sensitivity ENT ENT: Positive for abnormal hearing and nasal congestion (improving); No ear or mastoid pain, tinnitus, headache(s), neck pain or sore throat Resp Respiratory: Positive for shortness of breath sob: SOB with activity; No cough, snoring or wheezing Cardio Cardiology: Positive for other (from varicose veins); No chest pain at rest, chest pain with exertion, excessive sweating, shortness of breath, dyspnea on exertion, lightheadedness, orthopnea or palpitations Gastro GI: Positive for heartburn; No abdominal pain, change in bowel habits, constipation, cramping, diarrhea, nausea/dyspepsia or vomiting Genitourinary-Female: No difficulty urinating, burning urination, painful urination, urinary incontinence, urinary frequency, blood in urine, abnormal periods or pelvic pain Musc Musculoskeletal: No abnormal gait, joint pain, back pain, limited range of motion, neck pain, numbness, stiffness, tingling or Arthritis Skin Skin: No dry skin, redness, lesions, itchy eyes, rash or wounds Neuro Neurology: Positive for abnormal hearing; No abnormal gait, abnormal speech, dizziness, weakness, frequent falls, headache(s), memory loss, numbness, tingling or fainting Psych Psychiatric: No anxiety, No change in appetite, No depression, No memory loss and No Thoughts of harming yourself/Others Endo Endocrine: No cold intolerance, excessive sweating, fatigue, flushing, heat intolerance, increased thirst/drinking, increased hunger or weight change Aller/Imm Allergy/Immunologic: No itchy eyes, seasonal allergy symptoms, hives or wheezing Kashif/Lymp Hematologic/Lymphatic: No easy bleeding, easy bruising or enlarged lymph nodes Exam Const General: cooperative, healthy appearing, no acute distress, well developed, not diaphoretic and not ill appearing Nutritional Appearance: well nourished Orientation: alert and oriented x3 Limitations: mental status not altered [facility] Head: normal to inspection, normocephalic and atraumatic Ears: hearing grossly normal bilaterally and TM's normal bilaterally Face and sinus: normal facial exam Mouth: oral mucosae normal and moist mucous membranes Teeth and gingiva: dentition normal Throat: posterior oropharynx normal and uvula midline Eyes Conjunctivae: conjunctivae normal Sclera: sclerae normal Pupils: PERRL EOM: EOM intact bilaterally Neck Neck: no lymphadenopathy Thyroid: thyroid normal Lymphatic: no lymphadenopathy noted Chest Chest palpation & inspection: normal inspection of the chest Resp Effort & Inspection: normal respiratory effort, able to speak in complete sentences, no audible wheezes and no cough Auscultation: Bilateral: Clear to Auscultation Cardio Rate: regular rate Rhythm: regular rhythm Heart Sounds: S1 normal, S2 normal and no murmurs Pulses: radial pulses present bilaterally 2+ GI Inspection: non-distended Auscultation: normal bowel sounds Palpation: soft, no hepatosplenomegaly and nontender Skin General: no rashes or lesions noted and dry skin Wounds: no wounds Neuro General: patient alert, patient oriented x3, gait normal, moves all extremities,CN's II-XI intact bilaterally, deep tendon reflexes 2+ bilaterally and not confused Cranial Nerves: CN's II-XI intact bilaterally, PERRL, accommodation normal, EOM intact bilaterally, no nystagmus, facial strength normal, tongue midline, hearing normal, able to rotate head bilaterally and able to elevate shoulders bilaterally Cognition: normal cognition Speech: speech normal Gait: normal gait Motor: strength 5/5 throughout and no pronator drift Sensory Exam: no sensory deficits noted Coordination: [id number] test normal, fbcv-th-[id number] test normal, Romberg testnormal and rapid alternating movement UE normal Extrem General: normal to inspection and no edema Psych Appearance: grossly normal Mental Status: mental status grossly normal Affect: normal affect Attitude: cooperative Coding Level of Care Code Off vis,est,prev 18-39yrs Diagnoses Annual physical exam Z00.00 Varicose veins of bilateral lower extremities with pain I83.813 Gastroesophageal reflux disease without esophagitis K21.9 Esophagitis presence: without esophagitis Shortness of breath on exertion R06.02 Hearing difficulty of both ears H91.93 Laterality: bilateral Vitamin d deficiency E55.9 Screening for depression Z13.31 Family history of colon cancer Z80.0 Additional Codes LEAH-7 (96125) PHQ-9 (66541) Time Spent (min) 35 Assessment and Plan Assessment and Plan (1) Annual physical exam: Plan: Patient is here for a well visit. Vitals and exam are fairly unremarkable. Reviewed her employee labs from last year. She does plan on completing them again. Patient is scheduled for her pap smear. Discussed immunizations, diet and exercise. She scored 0 on her PHQ today. Work form completed and provided back to her. Follow up in 1 year or as needed. (2) Varicose veins of bilateral lower extremities with pain: Plan: Not fully addressed today, however, patient continues to have problems. She does still wear compression stockings and plans on going to see vascular for further recommendations. Will follow up on their findings and recommendations. (3) GERD (gastroesophageal reflux disease): Status: Acute Qualifiers: Esophagitis presence: without esophagitis Qualified Code(s): K21.9 - Gastro-esophageal reflux disease without esophagitis Plan: The patient reports she does have some ongoing symptoms after her EGD last year. Discussed different options including doing another 14 day course of omeprazole, adding daily omeprazole or doing PRN pepcid. She would like to do the latter and will buy it OTC. Will continue to monitor. (4) Shortness of breath on exertion: Plan: Not fully addressed today. During her ROS, she reports some shortness of breathwith exertion. Discussed that her exam doesn't demonstrate any findings to suggest a cardiac etiology, however, discussed that we can do an echo for further assessment. She would like to just monitor for now and will call if hersymptoms persist or worsen. (5) Hearing difficulty: Qualifiers: Laterality: bilateral Qualified Code(s): H91.93 - Unspecified hearing loss, bilateral Plan: Not fully addressed today. During her ROS, she reported some trouble with her hearing. Offered a referral for a hearing evaluation, but she declined. Will continue to monitor. (6) Vitamin d deficiency: Plan: The patient's last vitamin D level was low normal. She doesn't take a supplement. Will repeat for monitoring. (7) Screening for depression: Plan: The patient scored 0 on both her PHQ and LEAH today. (8) Family history of colon cancer: Plan: Patient's mother and grandmother both had colon cancer. She is up to date on her colon cancer screening. Will continue to monitor. The patient is here for a well visit. Plan as above. Medications reviewed withthe patient. Routine follow up scheduled. The patient was instructed to call with any concerns or questions before then and they were in agreement. I spent a total of 35 minutes on the date of the service which included preparing to see the patient, [id number] patient care, completing clinical documentation, obtaining and/or reviewing separately obtained history. This excludes separately reportable services. 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-VARICOSE VEINS Varicose veins of bilateral lower extremities with Reason for Visit COVID-19 vaccination declined Varicose veins of bilateral lower extremities with pain Family history of colon cancer Establishing care with new doctor, encounter for Annual physical exam Varicose veins of both lower extremities with pain Chief Complaint Admit Date YEARLY January 26, 2025 9:49am Reason for Visit Admit Date GERD (gastroesophageal reflux disease) S eptember 2024 9:49am Screening for depression January 26, 2025 9:49am Varicose veins of bilateral lower extrem ities with pain January 26, 2025 9:49am Family history of colon cancer January 26, 2025 9:49am Annual physical exam January 26 9:49am Shortness of breath on exertion Septembe r 2024 9:49am Hearing difficulty January 26, 2025 9:49am Vitamin d deficiency January 26 9:49am Family History No Family History Records Found Relationship Condition Age at Onset Recorded Date/T davy father Hypertension Unknown grandmother Malignant neoplasm of colon Unknown Relationship Condition Age at Onset Recorded Date/T davy father Hypertension Unknown grandmother Malignant neoplasm of colon 70 mother Malignant neoplasm of colon 62 Relationship Condition Age at Onset Recorded Date/T davy father Hypertension Unknown grandmother Malignant neoplasm of colon 70 mother Malignant neoplasm of colon 62 grandfather Malignant neoplasm of colon Unknown Malignant neoplasm Unknown grandfather Malignant neoplasm of esophagus Unknown Advance Directives No Advanced Directives Records Found Advance Directive Response Recorded Date/ Time Advance Directives No January 9:16am Living Will No September 28, 2018 2 :25am Power of Sensor Operator No September 28, 2018 2:25am Advance Directive Response Recorded Date/ Time Advance Directives No December 10, 020 1:45pm Living Will No December 11, 2019 1:45pm Power of Sensor Operator No December 10 20 1:45pm Advance Directive Response Recorded Date/ Time Advance Directives No December 10 1:45pm Summary Purpose Additional Source Comments Goals (unrecognized section and content) Type Care Experience Care Teams (unrecognized sec tion and content) Team Status: Active Member Role Status Dates No Primary Care Physician Family Provider Active Dr. Ofelia Carver MD Primary Care Provider Active Team Status: Inactive Member Role Status Dates [place] Dawn PSYCHIATRIC AIDE, PSYCHIATRIC AIDE-C Referring Provider Active Dr. Ofelia Carver MD Primary Care Provider, Attendi ng Provider Active Team Status: Inactive Member Role Status Dates Dr. Ofelia Carver MD Primary Care Provider, Referri ng Provider Active JOI Glasgow Attending Provider Active Team Status: Active Member Role Status Dates Dr. Ofelia Carver MD Primary Care Provider Active Dr. Hardeep Patrick MD Attending Provider Active Team Status: Active Member Role Status Dates Dr. Ofelia Carver MD Primary Care Provider Active Health Risk Assessment Attending Provider, Referring P dc Active Team Status: Inactive Member Role Status Dates Dr. Ofelia Carver MD Primary Care Provider Active JOI Glasgow Attending Provider, Referring Provid er Active Team Status: Active Member Role/Relationship Status Dates No Primary Care Physician Primary care physician Activ e MAXIMILIAN Meeks Primary care physician Active Team Status: Inactive Member Role/Relationship Status Dates MAXIMILIAN Meeks Primary care physician Active Start: January 26, 2025 End: January 26, 2025 MAXIMILIAN Meeks Referring Provider Active S tart: January 26, 2025 End: January 26, 2025 Dr. Ofelia Carver MD Attending physician Active Start: January 26, 2025 End: January 26, 2025 INFORMATION SOURCE (unrecogn ized section and content) DATE CREATED AUTHOR 03/17/2025 [facility] FOR RECORDS PERTAINING TO PATIENTS WHO ARE OR HAVE BEEN ENROLLED IN A CHEMICAL DEPENDENCY/SUBSTANCEABUSE PROGRAM, SOME INFORMATION MAY BE OMITTED. This clinical summary was aggregated from multiple sources. Caution should be exercised in using it in the provision of clinical care. This summary normalizes information from multiple sources, and as a consequence, information in this document may materially change the coding, format and clinical context of patient data. In addition, data may be omitted in some cases. CLINICAL DECISIONS SHOULD BE BASED ON THE PRIMARY CLINICAL RECORDS. [employer] [facility]. provides no warranty or guarantee of the accuracy or completeness of information in this document.
== END | disposition home or self-care (01) ==
LOC: OPBI 13:56
PROVIDERS: PCP Internal Medicine; Referring Provider Obstetrics & Gynecology; Visit Provider Obstetrics & Gynecology
DX: D24.9 Benign neoplasm of unspecified breast (principal); N60.11 Diffuse cystic mastopathy of right breast
CPT/HCPCS: 76642; 77062; 77066; G0279